=== PATIENT | female | born 1970 | race Caucasian/White ===

== ENCOUNTER 2017-07-01 11:37 | Emergency (ER) | payer BC ==
[2017-07-01] MEDS ORDERED: DOCUSATE 283 MG/5 ML ENEMA RECTAL STA (12:03)
[2017-07-01] MEDS ORDERED: MAGNESIUM CITRATE 296 ML BOTTLE PO ONE (12:03)
--- NOTE | 2017-07-01 12:06 | ED ---
Abdominal Pain HPI - General Chief Complaint: Abdominal Pain Stated Complaint: rectal bleed Time Seen by Provider: 07/01/17 11:49 Source: patient, RN notes reviewed, old records reviewed Mode of arrival: ambulatory Limitations: no limitations - History of Present Illness Initial Comments: 47-year-old female presents emergency Department chief complaint of one episode of bloody stool and constipation. Patient reports that yesterday she had a lot of cheese and thinks that that caused her to be constipated. She reports that she's never had bloody stools before. She reports that she was straining. She states it was a bright red blood. Patient denies any specific abdominal pain, denies any nausea or vomiting. Patient reports that she feels like she has to have a bowel movement but is unable to. Patient states she is not taking any stool softeners or any other medicine prior to coming in she was not sure if it was safe. Patient denies any recent fever, chills, shortness of breath, chest pain, back pain, abdominal pain, nausea vomiting, numbness or tingling, dysuria or hematuria, constipation or diarrhea, headaches or visual changes, or any other current symptoms - Related Data Previous Rx's Medication Instructions Recorded Bisacodyl [Dulcolax] 10 mg PO ONCE #10 tablet. 07/01/17 Allergies Allergy/AdvReac Type Severity Reaction Status Date / Time prochlorperazine Allergy Dyspnea Verified 07/01/17 11:44 [From Compazine] Review of Systems ROS Statement: Those systems with pertinent positive or pertinent negative responses have been documented in the HPI. ROS Other: All systems not noted in ROS Statement are negative. Past Medical History Past Medical History: No Reported History History of Any Multi-Drug Resistant Organisms: None Reported Past Surgical History: Adenoidectomy, Tonsillectomy, Tubal Ligation Past Psychological History: Anxiety, Depression Smoking Status: Never smoker Past Alcohol Use History: Occasional Past Drug Use History: None Reported General Exam - General Exam Comments Initial Comments: 47-year-old female. No acute distress. Limitations: no limitations General appearance: alert, in no apparent distress Head exam: Present: atraumatic, normocephalic, normal inspection Eye exam: Present: normal appearance, PERRL, EOMI. Absent: scleral icterus, conjunctival injection, periorbital swelling ENT exam: Present: normal exam, mucous membranes moist Neck exam: Present: normal inspection. Absent: tenderness, meningismus, lymphadenopathy Respiratory exam: Present: normal lung sounds bilaterally. Absent: respiratory distress, wheezes, rales, rhonchi, stridor Cardiovascular Exam: Present: regular rate, normal rhythm, normal heart sounds. Absent: systolic murmur, diastolic murmur, rubs, gallop, clicks GI/Abdominal exam: Present: soft, normal bowel sounds. Absent: distended, tenderness, guarding, rebound, rigid Rectal exam: Present: normal rectal tone, hemorrhoids (small external hemorrhoid ). Absent: normal inspection Extremities exam: Present: normal inspection, full ROM, normal capillary refill. Absent: tenderness, pedal edema, joint swelling, calf tenderness Back exam: Present: normal inspection Neurological exam: Present: alert, oriented X3, CN II-XII intact Psychiatric exam: Present: normal affect, normal mood Skin exam: Present: warm, dry, intact, normal color. Absent: rash Course Vital Signs 07/01/17 11:42 Temperature 97.9 F Pulse Rate 80 Respiratory 20 Rate Blood Pressure 136/80 O2 Sat by Pulse 99 Oximetry Medical Decision Making - Medical Decision Making 47-year-old female presents emergency Department chief complaint of one episode of bloody stool and constipation. Patient reports that yesterday she had a lot of cheese and thinks that that caused her to be constipated. She reports that she's never had bloody stools before. She reports that she was straining. She states it was a bright red blood. Patient denies any specific abdominal pain, denies any nausea or vomiting. Patient reports that she feels like she has to have a bowel movement but is unable to. Patient states she is not taking any stool softeners or any other medicine prior to coming in she was not sure if it was safe. He shouldn't does have what appears to be an external hemorrhoid and possible internal hemorrhoid. No pain noted on rectal exam. Patient did have a positive occult stool. Patient KUB was reviewed and negative for any acute process. She does a significant amount of stool burden. Patient was given Therevac enema, and will be discharged with magnesium citrate. Discussed that she needs to use stool softeners regularly if this continues to be an issue. Discussed for hemorrhoid it will stop bleeding with stool softeners. Recommended follow-up with primary care provider. Discussed that the severed painful to have a bowel movement she should return. Patient agrees to treatment plan will comply. Return parameters were discussed. - Lab Data Lab Results 07/01/17 Range/Units 12:20 Stool Occult Blood Positive H (Negative) - Radiology Data Interpreted by me: KUB shows no acute intracranial normality. Disposition Clinical Impression: Hemorrhoids, Constipation Disposition: HOME SELF-CARE Condition: Good Instructions: Constipation (ED), Hemorrhoids (ED) Additional Instructions: Patient advised to increase the fiber in her diet. Increase fluid intake. Patient should use stool softeners as well. Follow-up with her primary care provider. Return to emergency department if any alarming signs or symptoms occur. Prescriptions: Bisacodyl [Dulcolax] 10 mg PO ONCE #10 tablet.dr Referrals: Dennis Rocha MD [Primary Care Provider] - 1-2 days Time of Disposition: 12:45
--- NOTE | 2017-07-01 12:25 | XR ---
EXAMINATION TYPE: XR KUB , 2 VIEWS DATE OF EXAM ORDERED: 07/01/2017 HISTORY: Rectal bleeding. COMPARISON: Previous study dated 01/15/2013. FINDINGS: The abdominal gas pattern is normal. There is no evidence of obstruction or free air. No u nusual calcifications are seen. The lung bases are clear. IMPRESSION: NO ACUTE INTRA-ABDOMINAL ABDOMINAL ABNORMALITY.
[2017-07-01 12:59] VITALS: BP 128/64; PULSE 125; RESP 16; TEMP 97.6
== END 2017-07-01 12:59 | disposition home or self-care (01) ==
LOC: EC 11:37
DX: K64.4 Residual hemorrhoidal skin tags (principal); K59.00 Constipation, unspecified; Z98.51 Tubal ligation status; Z88.8 Allergy status to other drugs, medicaments and biological substances
CPT/HCPCS: 36415; 74000; 82272; 99284

== ENCOUNTER 2017-12-09 09:58 | Emergency (ER) | payer BC ==
[2017-12-09] MEDS ORDERED: KETOROLAC 30 MG/ML 1 ML VIAL IVP STA (10:43)
--- NOTE | 2017-12-09 10:48 | ED ---
URI HPI - General Chief Complaint: Upper Respiratory Infection Stated Complaint: CHEST MUSCLE PULL Time Seen by Provider: 12/09/17 10:21 Source: patient, RN notes reviewed Mode of arrival: ambulatory Limitations: no limitations - History of Present Illness Initial Comments: This is a 47-year-old female history of anxiety reflux a family history of heart disease and lung cancer she has 2 older sisters or smokers and have lung cancer in older brother was a smoker had heart disease. She presents today because she states she was awoken at night about 3:57 AM with upper midsternal achy chest pain that got worse with movements and deep breathing was 4-5/10 severity at its maximum and S1 is right now. She does states usually stretches a lot at night and believes this may have precipitated this also she was doing a lot of cleaning and moving items in her house yesterday which also may have exacerbated. Patient no known history personally of heart disease or lung disease she is not a smoker she also states she's has had some right upper quadrant discomfort she believes her gallbladder is acting up if she has nausea after eating. She denies any fevers chills sweats no overt rhinorrhea or sore throat she does have a cough no overt phlegm production no dysuria hematuria or other symptoms. Patient states she also has been using some heartburn but this is been going on for a long time and believes is related to her gallbladder. MD Complaint: cough, other - Related Data Home Medications Medication Instructions Recorded Confirmed ALPRAZolam [Xanax] 0.25 mg PO Q8HR PRN 12/09/17 12/09/17 Sertraline [Zoloft] 25 mg PO DAILY 12/09/17 12/09/17 Sertraline [Zoloft] 50 mg PO DAILY 12/09/17 12/09/17 Previous Rx's Medication Instructions Recorded Cyclobenzaprine [Flexeril] 10 mg PO TID #14 tab 12/09/17 Ibuprofen 800 mg PO Q6HR PRN #20 tablet 12/09/17 Allergies Allergy/AdvReac Type Severity Reaction Status Date / Time prochlorperazine Allergy Dyspnea Verified 12/09/17 12:21 [From Compazine] Review of Systems ROS Statement: Those systems with pertinent positive or pertinent negative responses have been documented in the HPI. ROS Other: All systems not noted in ROS Statement are negative. Past Medical History Past Medical History: No Reported History History of Any Multi-Drug Resistant Organisms: None Reported Past Surgical History: Adenoidectomy, Tonsillectomy, Tubal Ligation Past Psychological History: Anxiety, Depression Smoking Status: Never smoker Past Alcohol Use History: Occasional Past Drug Use History: None Reported General Exam - General Exam Comments Initial Comments: This is a well-developed well-nourished awake alert oriented 3 female Limitations: no limitations General appearance: alert, in no apparent distress Head exam: Present: atraumatic, normocephalic, normal inspection Eye exam: Present: normal appearance, PERRL, EOMI. Absent: scleral icterus, conjunctival injection, periorbital swelling ENT exam: Present: normal exam, mucous membranes moist Neck exam: Present: normal inspection. Absent: tenderness, meningismus, lymphadenopathy Respiratory exam: Present: normal lung sounds bilaterally, chest wall tenderness (Reproducible tenderness palpation of the costochondral and costosternal margin especially proximal aspect. This does reproduce the pain the patient complains of.). Absent: respiratory distress, wheezes, rales, rhonchi, stridor Cardiovascular Exam: Present: regular rate, normal rhythm, normal heart sounds, other (Pulses were equal bilaterally 2/2 with respect to the radial and posterior tibial). Absent: systolic murmur, diastolic murmur, rubs, gallop, clicks GI/Abdominal exam: Present: soft, tenderness (Mild right upper quadrant tenderness palpation no guarding no rebound), normal bowel sounds. Absent: distended, guarding, rebound, rigid Rectal exam: Present: deferred Extremities exam: Present: normal inspection, full ROM, normal capillary refill. Absent: tenderness, pedal edema, joint swelling, calf tenderness Back exam: Present: normal inspection, full ROM. Absent: tenderness, CVA tenderness (R), CVA tenderness (L), muscle spasm, paraspinal tenderness, vertebral tenderness Neurological exam: Present: alert, oriented X3, CN II-XII intact Psychiatric exam: Present: normal affect, normal mood Skin exam: Present: warm, dry, intact, normal color. Absent: rash Course Vital Signs 12/09/17 12/09/17 12/09/17 10:14 12:20 14:13 Temperature 97.2 F L Pulse Rate 76 62 Respiratory 17 18 18 Rate Blood Pressure 153/72 118/59 125/78 O2 Sat by Pulse 99 99 99 Oximetry - Reevaluation(s) Reevaluation #1: 12/09/17 12:56 Patient is feeling somewhat improved she states she has been having some chest pain recently though the Toradol did help the pain she never had a history of blood clots over d-dimer is elevated the chest has been ordered Medical Decision Making - Medical Decision Making I did discuss the findings with the patient. She'll be discharged with appropriate medication the presentation is consistent with chest wall pain. CT is negative for PE no other pathology noted. We did discuss the possibility of gallbladder disease needing a HIDA scan which she couldn have this discussed with her doctor - Lab Data Result diagrams: 12/09/17 11:20 12/09/17 11:20 Lab Results 12/09/17 12/09/17 12/09/17 Range/Units 11:20 11:20 11:20 WBC 4.3 (3.8-10.6) k/uL RBC 4.29 (3.80-5.40) m/uL Hgb 12.5 (11.4-16.0) gm/dL Hct 38.0 (34.0-46.0) % MCV 88.4 (80.0-100.0) fL MCH 29.0 (25.0-35.0) pg MCHC 32.8 (31.0-37.0) g/dL RDW 14.2 (11.5-15.5) % Plt Count 187 (150-450) k/uL Neutrophils % 67 % Lymphocytes % 23 % Monocytes % 6 % Eosinophils % 1 % Basophils % 1 % Neutrophils # 2.9 (1.3-7.7) k/uL Lymphocytes # 1.0 (1.0-4.8) k/uL Monocytes # 0.3 (0-1.0) k/uL Eosinophils # 0.1 (0-0.7) k/uL Basophils # 0.0 (0-0.2) k/uL PT (9.0-12.0) sec INR (<1.2) APTT (22.0-30.0) sec D-Dimer (<0.60) mg/L FEU Sodium 138 (137-145) mmol/L Potassium 3.7 (3.5-5.1) mmol/L Chloride 105 (98-107) mmol/L Carbon Dioxide 26 (22-30) mmol/L Anion Gap 7 mmol/L BUN 12 (7-17) mg/dL Creatinine 0.52 (0.52-1.04) mg/dL Est GFR (CKD-EPI)AfAm >90 (>60 ml/min/1.73 sqM) Est GFR (CKD-EPI)NonAf >90 (>60 ml/min/1.73 sqM) Glucose 98 (74-99) mg/dL Calcium 9.2 (8.4-10.2) mg/dL Magnesium 1.7 (1.6-2.3) mg/dL Total Bilirubin 0.2 (0.2-1.3) mg/dL AST 25 (14-36) U/L ALT 31 (9-52) U/L Alkaline Phosphatase 83 (38-126) U/L Total Creatine Kinase 31 (30-135) U/L CK-MB (CK-2) <0.2 (0.0-2.4) ng/mL CK-MB (CK-2) Rel Index Troponin I <0.012 (0.000-0.034) ng/mL Total Protein 6.1 L (6.3-8.2) g/dL Albumin 3.8 (3.5-5.0) g/dL Amylase 39 (30-110) U/L Lipase 43 (23-300) U/L //18 Range/Units 11:20 WBC (3.8-10.6) k/uL RBC (3.80-5.40) m/uL Hgb (11.4-16.0) gm/dL Hct (34.0-46.0) % MCV (80.0-100.0) fL MCH (25.0-35.0) pg MCHC (31.0-37.0) g/dL RDW (11.5-15.5) % Plt Count (150-450) k/uL Neutrophils % % Lymphocytes % % Monocytes % % Eosinophils % % Basophils % % Neutrophils # (1.3-7.7) k/uL Lymphocytes # (1.0-4.8) k/uL Monocytes # (0-1.0) k/uL Eosinophils # (0-0.7) k/uL Basophils # (0-0.2) k/uL PT 10.4 (9.0-12.0) sec INR 1.1 (<1.2) APTT 22.9 (22.0-30.0) sec D-Dimer 0.61 H (<0.60) mg/L FEU Sodium (137-145) mmol/L Potassium (3.5-5.1) mmol/L Chloride (98-107) mmol/L Carbon Dioxide (22-30) mmol/L Anion Gap mmol/L BUN (7-17) mg/dL Creatinine (0.52-1.04) mg/dL Est GFR (CKD-EPI)AfAm (>60 ml/min/1.73 sqM) Est GFR (CKD-EPI)NonAf (>60 ml/min/1.73 sqM) Glucose (74-99) mg/dL Calcium (8.4-10.2) mg/dL Magnesium (1.6-2.3) mg/dL Total Bilirubin (0.2-1.3) mg/dL AST (14-36) U/L ALT (9-52) U/L Alkaline Phosphatase (38-126) U/L Total Creatine Kinase (30-135) U/L CK-MB (CK-2) (0.0-2.4) ng/mL CK-MB (CK-2) Rel Index Troponin I (0.000-0.034) ng/mL Total Protein (6.3-8.2) g/dL Albumin (3.5-5.0) g/dL Amylase (30-110) U/L Lipase (23-300) U/L - EKG Data -: EKG Interpreted by Me EKG shows normal: sinus rhythm (Sinus rhythm rate is 77 appear interval 188 QRS duration 88 QT since QTC of 36/436 occasional PACs no acute ST-T wave changes.) - Radiology Data Radiology results: report reviewed (I did review the imaging and reports no acute findings.), image reviewed Disposition Clinical Impression: Costochondritis, acute, Chest wall pain Disposition: HOME SELF-CARE Condition: Good Instructions: Costochondritis (ED), Chest Wall Pain (ED) Prescriptions: Cyclobenzaprine [Flexeril] 10 mg PO TID #14 tab Ibuprofen 800 mg PO Q6HR PRN #20 tablet PRN Reason: Pain Referrals: Dennis Rocha MD [Primary Care Provider] - 1-2 days
[2017-12-09 11:31] LABS: Basophils % (A) 1 %; Eosinophils # (A) 0.1 k/uL (0-0.7); Eosinophils % (A) 1 %; HGB 12.5 gm/dL (11.4-16.0); Lymphocytes % (A) 23 %; MCHC 32.8 g/dL (31.0-37.0); MCV 88.4 fL (80.0-100.0); Mean Platelet Volume 7.7; Monocytes # (A) 0.3 k/uL (0-1.0); Monocytes % (A) 6 %; Neutrophils # (A) 2.9 k/uL (1.3-7.7); Neutrophils % (A) 67 %; Platelet Count 187 k/uL (150-450); RBC 4.29 m/uL (3.80-5.40); RDW 14.2 % (11.5-15.5); WBC 4.3 k/uL (3.8-10.6)
[2017-12-09 11:44] LABS: ALT 31 U/L (9-52); AST 25 U/L (14-36); Albumin 3.8 g/dL (3.5-5.0); Alkaline Phosphatase 83 U/L (38-126); Amylase 39 U/L (30-110); Anion Gap 7 mmol/L; Blood Urea Nitrogen 12 mg/dL (7-17); Calcium 9.2 mg/dL (8.4-10.2); Carbon Dioxide 26 mmol/L (22-30); Chloride 105 mmol/L (98-107); Glucose 98 mg/dL (74-99); Lipase 43 U/L (23-300); Magnesium 1.7 mg/dL (1.6-2.3); Potassium 3.7 mmol/L (3.5-5.1); Sodium 138 mmol/L (137-145); Total Bilirubin 0.2 mg/dL (0.2-1.3); Total Protein 6.1 g/dL (6.3-8.2)
[2017-12-09 11:50] LABS: INR 1.1 (<1.2)
[2017-12-09 11:51] LABS: Partial Thromboplastin Time 22.9 sec (22.0-30.0); Prothrombin Time 10.4 sec (9.0-12.0)
[2017-12-09 11:55] LABS: D-Dimer 0.61 mg/L FEU (<0.60)
[2017-12-09 12:03] LABS: Creatine Kinase 31 U/L (30-135)
--- NOTE | 2017-12-09 12:04 | XR ---
EXAMINATION TYPE: XR chest 2V DATE OF EXAM: 12/09/2017 HISTORY: Chest Pain. REFERENCE: Previous study dated 10/01/2010. FINDINGS: The lungs are clear pleural space are clear. The heart is not enlarged. IMPRESSION: I DO NOT SEE AN ACUTE INTRATHORACIC ABNORMALITY.
[2017-12-09 12:16] LABS: Creatine Kinase MB <0.2 ng/mL (0.0-2.4); Troponin I <0.012 ng/mL (0.000-0.034)
[2017-12-09 12:21] VITALS: RESP 18
[2017-12-09] MEDS ORDERED: RX INFO: IV CONTRAST WAS GIVEN 1 EACH MISC MISCELLANE PRN (12:54)
--- NOTE | 2017-12-09 13:43 | US ---
EXAMINATION TYPE: US gallbladder DATE OF EXAM: 12/09/2017 COMPARISON: US 06/19/2017 CLINICAL HISTORY: Chest Pain. EXAM MEASUREMENTS: Liver Length: 17.3 cm Gallbladder Wall: 0.1 cm CBD: 0.4 cm Right Kidney: 10.7 x 4.2 x 4.2 cm Pancreas: Tail obscured by overlying bowel gas, visualized portions wnl Liver: Measuring upper limits of normal Gallbladder: wnl Evidence for sonographic Burch's sign: No CBD: wnl Right Kidney: No hydronephrosis or masses seen Limited views of the pancreas are unremarkable. The liver is normal in size of the pituitary dilatation. The gallbladder is normal without evidence of cholelithiasis. The gallbladder wall measures 1 mm. The distal common hepatic duct measures 4 mm. Right kidney is unremarkable. IMPRESSION: NORMAL RIGHT UPPER QUADRANT ULTRASOUND.
--- NOTE | 2017-12-09 15:14 | CT ---
EXAMINATION TYPE: CT angio chest DATE OF EXAM: 12/09/2017 2:26 PM COMPARISON: NONE HISTORY: Chest muscle pull CT DLP: 239.60 mGycm Automated exposure control for dose reduction was used. CONTRAST: CTA scan of the thorax is performed with IV Contrast, patient injected with 100 ml mL of Omnipaque 30 0, pulmonary embolism protocol. . FINDINGS: LUNGS: The lungs are grossly clear, there is no concerning parenchymal mass or nodule identified. T here is no pleural effusion or pneumothorax seen. The tracheobronchial tree is patent. MEDIASTINUM: There is satisfactory enhancement of the pulmonary artery and its branches, there is no CT evidence for pulmonary embolism. There are no greater than 1 cm hilar or mediastinal lymph nodes. No pericardial effusion is seen. OTHER: No additional significant abnormality is seen. IMPRESSION: NO FINDINGS TO SUGGEST PULMONARY EMBOLISM.
[2017-12-09 15:40] VITALS: BP 114/62; PULSE 76; TEMP 97.1
== END 2017-12-09 15:46 | disposition home or self-care (01) ==
LOC: EC 09:58
DX: M94.0 Chondrocostal junction syndrome [Tietze] (principal); R10.11 Right upper quadrant pain; R11.0 Nausea; F32.9 Major depressive disorder, single episode, unspecified; F41.9 Anxiety disorder, unspecified; Z80.1 Family history of malignant neoplasm of trachea, bronchus and lung; Z82.49 Family history of ischemic heart disease and other diseases of the circulatory system; Z79.899 Other long term (current) drug therapy; Z88.8 Allergy status to other drugs, medicaments and biological substances
CPT/HCPCS: 36415; 93005; 85379; 80053; 82150; 82550; 82553; 83690; 83735; 84484; 85025; 85610; 85730; 71046; 76705; 71275; 99284; 96374; Q9967; J1885

== ENCOUNTER → 2018-05-24 | Outpatient (CLI) | payer BC ==
--- NOTE | 2018-05-24 13:58 | MR ---
EXAMINATION TYPE: MR knee LT wo con DATE OF EXAM: 05/24/2018 COMPARISON: HISTORY: Left knee pain TECHNIQUE: Multiplanar, multisequence imaging of the knee is performed without IV contrast. FINDINGS: MEDIAL MENISCUS: Posterior horn of the medial meniscus has increased internal signal compatible type I internal derangement. No communication with an articular surface is evident. Anterior horn of the m edial meniscus is normal. LATERAL MENISCUS: Anterior and posterior horns are intact without tear. CRUCIATE LIGAMENTS: The anterior and posterior cruciate ligaments are intact and unremarkable. COLLATERAL LIGAMENTS: The medial collateral ligament and lateral collateral ligament complex are inta ct and unremarkable. EXTENSOR MECHANISM: Visualized quadriceps and patellar tendons are intact. EFFUSION: No significant suprapatellar joint effusion. POPLITEAL CYST: No popliteal/sommer cyst. TRICOMPARTMENT SPACES: Joint spaces appear preserved. CARTILAGE: Mild thinning of the medial and lateral compartment articular cartilage may be present. BONE MARROW SIGNAL: No focal abnormal marrow signal is appreciated. OTHER: No additional significant abnormality is appreciated. IMPRESSION: 1. Internal derangement of the posterior horn medial meniscus. 2. There may be some mild osteoarthritic degenerative change medial lateral compartment joint spaces.
== END | disposition home or self-care (01) ==
LOC: RADMRIMAIN 06:49
PROVIDERS: ATTEND Orthopaedic Surgery
DX: M23.322 Other meniscus derangements, posterior horn of medial meniscus, left knee (principal)

== ENCOUNTER → 2018-08-17 | Outpatient (CLI) | payer BC ==
--- NOTE | 2018-08-21 11:26 | MM ---
Reason for exam: screening (asymptomatic). Last mammogram was performed 5 years and 1 month ago. History: Benign excisional biopsy of the right breast, 2010. Benign cyst aspiration of the right breast, 2007. Took hormonal contraceptives for 1 year. Physical Findings: A clinical breast exam by your physician is recommended on an annual basis and results should be correlated with mammographic findings. MG 3D Screening Mammo W/Cad Bilateral CC and MLO view(s) were taken. Prior study comparison: July 26, 2013, [facility] DIGITAL RIGHT MAMMOGRAM w/CAD. July 22, 2013, bilateral digital screening mammo w/CAD. The breast tissue is heterogeneously dense. This may lower the sensitivity of mammography. Right upper outer quadrant architectural distortion. There was an overlying scar marker in 2013. The distortion is more defined that may be post surgical. ASSESSMENT: Incomplete: need additional imaging evaluation, BI-RAD 0 RECOMMENDATION: Special view mammogram of the right breast. If lesion persists on supplemental views, image directed ultrasound is recommended. [facility] will attempt to contact patient to return for supplemental views and ultrasound if indicated.
== END | disposition home or self-care (01) ==
LOC: RADMAMWWP 09:41
PROVIDERS: ATTEND Family Medicine
DX: Z12.31 Encounter for screening mammogram for malignant neoplasm of breast (principal); R92.8 Other abnormal and inconclusive findings on diagnostic imaging of breast
CPT/HCPCS: 77063; 77067

== ENCOUNTER → 2018-08-27 | Outpatient (CLI) | payer BC ==
--- NOTE | 2018-08-27 10:20 | MM ---
Reason for exam: additional evaluation requested from abnormal screening. Last mammogram was performed less than 1 month ago. History: Benign excisional biopsy of the right breast, 2009. Benign cyst aspiration of the right breast, 2007. Took hormonal contraceptives for 1 year. Physical Findings: Nurse did not find any significant physical abnormalities on exam. MG 3D Work Up W/Cad RT Spot compression CC, spot compression MLO, and LM view(s) were taken of the right breast. Prior study comparison: August 17, 2018, bilateral MG 3d screening mammo w/cad. July 26, 2013, [facility] DIGITAL RIGHT MAMMOGRAM w/CAD. The breast tissue is heterogeneously dense. This may lower the sensitivity of mammography. Right upper outer quadrant distortion is similar to 2013 at the site of prior surgical excision. These results were verbally communicated with the patient and result sheet given to the patient on 08/27/18. ASSESSMENT: Benign, BI-RAD 2 RECOMMENDATION: Return to routine screening mammogram schedule for both breasts.
== END ==
LOC: RADMAMWWP 06:54
PROVIDERS: ATTEND Family Medicine
DX: R92.8 Other abnormal and inconclusive findings on diagnostic imaging of breast (principal)
CPT/HCPCS: 77061; 77065

== ENCOUNTER → 2018-10-04 | Outpatient (CLI) | payer BC ==
--- NOTE | 2018-10-04 12:12 | CT ---
EXAMINATION TYPE: CT brain wo con DATE OF EXAM: 10/04/2018 COMPARISON: None HISTORY: 48-year-old female with headache TECHNIQUE: Examination was done in axial plane without intravenous contrast. Coronal and sagittal r econstructions performed. CT DLP: 1180 mGycm Automated exposure control for dose reduction was used. FINDINGS: There is no evidence of acute intracranial hemorrhage, acute ischemic changes, mass, mass-effect, or extra-axial fluid collection. There is no effacement of cerebral sulci or basal subarachnoid cister ns. There is no hydrocephalus. There is no midline shift. Gardiner-white matter distinction is preserv ed. Paranasal sinuses and mastoid air cells are pneumatized. Orbits and globes are intact. IMPRESSION: No acute intracranial abnormality seen.
== END ==
LOC: RADCTMAIN 11:42
PROVIDERS: ATTEND Physician Assistant
DX: R51 Headache (principal)
CPT/HCPCS: 70450

== ENCOUNTER 2019-01-12 10:38 | Emergency (ER) | payer BC ==
[2019-01-12 10:42] VITALS: BP 146/86; PULSE 72; RESP 18; TEMP 98.2
--- NOTE | 2019-01-12 11:03 | ED ---
General Adult HPI - General Chief complaint: Head Injury Stated complaint: headaches/hit head Time Seen by Provider: 01/12/19 10:46 Source: patient, RN notes reviewed, old records reviewed Mode of arrival: ambulatory Limitations: no limitations - History of Present Illness Initial comments: 49-year-old female presenting status post head injury with complaint of headache. Patient fell 4 days prior, fell off of a stepstool landing onto the back of her head. No loss consciousness. She said no associated photophobia, no nausea or vomiting. She does have chronic daily headache although she states that headache over the past 4 days is somewhat different than baseline. She reports chronic sinus headache as well as migraine type headache. She has had this for many years. Headache today is bifrontal and right occipital. Headache. Began after the fall. She's had no focal numbness or weakness. No blood thinners. - Related Data Home Medications Medication Instructions Recorded Confirmed ALPRAZolam [Xanax] 0.25 mg PO Q8HR PRN 12/09/17 01/12/19 Sertraline [Zoloft] 50 mg PO DAILY 12/09/17 01/12/19 Allergies Allergy/AdvReac Type Severity Reaction Status Date / Time prochlorperazine Allergy Dyspnea Verified 01/12/19 11:23 [From Compazine] Review of Systems ROS Statement: Those systems with pertinent positive or pertinent negative responses have been documented in the HPI. ROS Other: All systems not noted in ROS Statement are negative. Past Medical History Past Medical History: No Reported History History of Any Multi-Drug Resistant Organisms: None Reported Past Surgical History: Adenoidectomy, Tonsillectomy, Tubal Ligation Past Psychological History: Anxiety, Depression Smoking Status: Never smoker Past Alcohol Use History: Occasional Past Drug Use History: None Reported General Exam Limitations: no limitations General appearance: alert, in no apparent distress Head exam: Present: atraumatic, normocephalic Eye exam: Present: normal appearance, PERRL ENT exam: Present: normal exam Neck exam: Present: normal inspection. Absent: tenderness, meningismus Respiratory exam: Present: normal lung sounds bilaterally. Absent: respiratory distress, wheezes Cardiovascular Exam: Present: regular rate, normal rhythm GI/Abdominal exam: Present: soft. Absent: distended, tenderness, guarding Extremities exam: Present: normal inspection, normal capillary refill. Absent: pedal edema Neurological exam: Present: alert, oriented X3, CN II-XII intact. Absent: motor sensory deficit Psychiatric exam: Present: normal affect, normal mood Skin exam: Present: warm, dry, intact. Absent: cyanosis, diaphoretic Course Vital Signs 01/12/19 10:40 Temperature 98.2 F Pulse Rate 72 Respiratory 18 Rate Blood Pressure 146/86 O2 Sat by Pulse 98 Oximetry Medical Decision Making - Medical Decision Making 49-year-old female presenting with headache status post fall with head injury. Patient is well-appearing with stable vitals, nonfocal exam. Head CT obtained, negative for intracranial hemorrhage or mass effect. Patient will be discharged with concussion instructions. Follow up with primary care physician. Disposition Clinical Impression: Concussion without loss of consciousness Disposition: HOME SELF-CARE Condition: Good Instructions (If sedation given, give patient instructions): Concussion (ED) Is patient prescribed a controlled substance at d/c from ED?: No Referrals: Dennis Rocha MD [Primary Care Provider] - 1-2 days Time of Disposition: 11:34
--- NOTE | 2019-01-12 11:16 | CT ---
EXAMINATION TYPE: CT brain wo con DATE OF EXAM: 01/12/2019 COMPARISON: 10/04/2018 HISTORY: Headache, hit head CT DLP: [address] of the brain was performed. The ventricles, basal cisterns and sulci overlying the cerebral convexities demonstrate a normal appe arance. There is no evidence for intracranial hemorrhage or sulcal effacement. No mass effects are seen. Osseous calvarium is intact. If symptoms persist consider MRI as clinically warranted. IMPRESSION: 1. No acute intracranial process is seen at this time.
--- NOTE | 2019-01-12 11:17 | CT ---
EXAMINATION TYPE: CT sinus wo con DATE OF EXAM: 01/12/2019 COMPARISON: None HISTORY: Headache, hit head CT DLP: included in brain mGycm Unenhanced CT of the paranasal sinuses was performed in the axial and coronal planes. Bone and soft tissue settings are submitted. The paranasal sinuses demonstrate normal aeration and development. Mild mucoperiosteal thickening of the ethmoid air cells and maxillary sinuses. No air-fluid level see n. The osteal meatal units are patent bilaterally. The nasal septum is midline. No bony destructive changes are seen within the field of view. IMPRESSION: Mild mucoperiosteal thickening of the ethmoid air cells and maxillary sinuses.
== END 2019-01-12 11:39 | disposition home or self-care (01) ==
LOC: EC 10:38
DX: S06.0X0A Concussion without loss of consciousness, initial encounter (principal); F32.9 Major depressive disorder, single episode, unspecified; F41.9 Anxiety disorder, unspecified; Z88.8 Allergy status to other drugs, medicaments and biological substances; Z79.899 Other long term (current) drug therapy; W08.XXXA Fall from other furniture, initial encounter; Y93.89 Activity, other specified
CPT/HCPCS: 70450; 70486; 99284

== ENCOUNTER → 2019-09-24 | Outpatient (CLI) | payer BC ==
--- NOTE | 2019-09-26 13:20 | MM ---
Reason for exam: screening (asymptomatic). Last mammogram was performed 1 year and 1 month ago. History: Benign excisional biopsy of the right breast, 2009. Benign cyst aspiration of the right breast, 2007. Took hormonal contraceptives for 1 year. Physical Findings: A clinical breast exam by your physician is recommended on an annual basis and results should be correlated with mammographic findings. MG 3D Screening Mammo W/Cad Bilateral CC and MLO view(s) were taken. Prior study comparison: August 27, 2018, right breast MG 3d work up w/cad RT. August 17, 2018, bilateral MG 3d screening mammo w/cad. The breast tissue is heterogeneously dense. This may lower the sensitivity of mammography. No suspicious abnormality on the left breast. There appear to be two areas of architectural distortion on 3D CC image 25/90 at posterior depth 10-11cm from nipple and on 3D CC 45/90 at middle depth 7cm from nipple. These appear superior on MLO. Excisional scar back to 2012. Given two areas of distortion ultrasound will be done. ASSESSMENT: Incomplete: need additional imaging evaluation, BI-RAD 0 RECOMMENDATION: Ultrasound of the right breast. [facility] will attempt to contact patient to return for ultrasound.
== END | disposition home or self-care (01) ==
LOC: RADMAMWWP 07:41
PROVIDERS: ATTEND Family Medicine
DX: Z12.31 Encounter for screening mammogram for malignant neoplasm of breast (principal)
CPT/HCPCS: 77063; 77067

== ENCOUNTER → 2019-10-09 | Outpatient (CLI) | payer BC ==
--- NOTE | 2019-10-09 10:14 | USB ---
Reason for exam: additional evaluation requested from abnormal screening. History: Benign excisional biopsy of the right breast, 2010. Benign cyst aspiration of the right breast, 2007. Took hormonal contraceptives for 1 year. Physical Findings: Nurse Summary: Patient complains of pain lateral right breast for months, intermittent (nurse TM). US Breast Workup RT Right complete breast ultrasound includes all four quadrants, the retroareolar region and axilla. Finding demonstrates a 0.6 x 0.4 x 0.6cm cystic lesion at 12 o'clock and 10 o'clock distortion correlates with prior biopsy site. No ultrasound abnormality at second more posterior distortion by mammogram. These results were verbally communicated with the patient and result sheet given to the patient on 10/09/19. ASSESSMENT: Benign, BI-RAD 2 RECOMMENDATION: Special view mammogram of the right breast. (3D compression)
--- NOTE | 2019-10-09 10:15 | MM ---
Reason for exam: additional evaluation requested from abnormal screening. Last mammogram was performed less than 1 month ago. History: Benign excisional biopsy of the right breast, 2009. Benign cyst aspiration of the right breast, 2007. Took hormonal contraceptives for 1 year. MG 3D Work Up W/Cad RT Spot compression CC and LM view(s) were taken of the right breast. Prior study comparison: September 24, 2019, bilateral MG 3d screening mammo w/cad. August 27, 2018, right breast MG 3d work up w/cad RT. The breast tissue is heterogeneously dense. This may lower the sensitivity of mammography. There is no discrete abnormality at posterior distortion on compression. These results were verbally communicated with the patient and result sheet given to the patient on 10/09/19. ASSESSMENT: Probably benign, BI-RAD 3 RECOMMENDATION: Follow-up diagnostic mammogram of the right breast in 6 months.
== END | disposition home or self-care (01) ==
LOC: RADMAMWWP 08:38
PROVIDERS: ATTEND Family Medicine
DX: R92.8 Other abnormal and inconclusive findings on diagnostic imaging of breast (principal)
CPT/HCPCS: 77061; 77065

== ENCOUNTER 2019-10-19 12:16 | Emergency (ER) | payer BC ==
[2019-10-19 12:20] VITALS: RESP 18; TEMP 100
[2019-10-19] MEDS ORDERED: SODIUM CHLORIDE 0.9% 500 ML 500 ML IV STA (12:46)
--- NOTE | 2019-10-19 12:53 | ED ---
General Adult HPI - General Chief complaint: Chest Pain Stated complaint: Numbness in hands, chest pain Time Seen by Provider: 10/19/19 12:28 Source: patient Mode of arrival: ambulatory Limitations: no limitations - History of Present Illness Initial comments: Dictation was produced using [employer] dictation software. please excuse any grammatical, word or spelling errors. Chief Complaint: 49-year-old female past medical history of anxiety presents with chest pain and paresthesias to bilateral hands. History of Present Illness: Patient is a 49-year-old female past medical history of anxiety. She presents today with chief complaint of chest pain and paresthesias to the hands. Patient states that today she's been having some chest pain. She describes it as sharp located to the left anterior chest just anterior to the left anterior axillary line. She describes pain as sharp worse with palpation and movement. Patient does not have any history of coronary artery disease. Family history of cardiac disease. Patient states her had flulike symptoms recently however he recovered. The ROS documented in this emergency department record has been reviewed and confirmed by me. Those systems with pertinent positive or negative responses have been documented in the HPI. All other systems are other negative and/or noncontributory. PHYSICAL EXAM: General Impression: Alert and oriented x3, not in acute distress HEENT: Normocephalic atraumatic, extra-ocular movements intact, pupils equal and reactive to light bilaterally, mucous membranes moist. Cardiovascular: Heart regular rate and rhythm, S1&S2 audible, no murmurs, rubs or gallops Chest: Lungs clear to auscultation bilaterally, no rhonchi, no wheeze, no rales, tenderness to palpation of the left anterior chest reproducible with left upper extremity movement as well Abdomen: Bowel sounds present, abdomen soft, non-tender, non-distended, no organomegaly Musculoskeletal: Pulses present and equal in all extremities, no peripheral edema Motor: no focal deficits noted Neurological: CN II-XII grossly intact, no focal motor or sensory deficits noted Skin: Intact with no visualized rashes Psych: Normal affect and mood ED course: 49-year-old female presents with atypical chest pain. Patient also had flulike symptoms. She did take some Mucinex just before coming to the emergency department. On arrival shows 100. Temperature oral, heart rate of 105, rest of vital signs within acceptable limits. Patient is well-appearing at bedside. She is no risk factors for coronary artery disease, no significant family history. Furthermore, patient's pain is atypical. EKGs benign. Laboratory evaluation obtained. CBC, metabolic panel, influenza test negative. Patient does have some mild acidosis. She admitted to me that she just started ketogenic diet. Patient's labs suggested also some mild dehydration. Patient told that if she is on is that she should increase her hydration status. Patient told to avoid Sudafed containing cold medications. Patient agreeable for discharge. She is told of metabolic acidosis but THE primary care physician. EKG interpretation: Ventricular rate 98, normal sinus rhythm, CT interval 182, QRS 88, QTc 464. No CT prolongation, no QTC prolongation, no ST or T-wave changes noted. Overall, this EKG is unremarkable - Related Data Home Medications Medication Instructions Recorded Confirmed ALPRAZolam [Xanax] 0.25 mg PO Q8HR PRN 12/09/17 01/12/19 Sertraline [Zoloft] 50 mg PO DAILY 12/09/17 01/12/19 Allergies Allergy/AdvReac Type Severity Reaction Status Date / Time prochlorperazine Allergy Dyspnea Verified 01/12/19 11:23 [From Compazine] Review of Systems ROS Statement: Those systems with pertinent positive or pertinent negative responses have been documented in the HPI. ROS Other: All systems not noted in ROS Statement are negative. Past Medical History Past Medical History: No Reported History History of Any Multi-Drug Resistant Organisms: None Reported Past Surgical History: Adenoidectomy, Tonsillectomy, Tubal Ligation Additional Past Surgical History / Comment(s): tumor removed out of right breast. Past Psychological History: Anxiety, Depression Smoking Status: Never smoker Past Alcohol Use History: Occasional Past Drug Use History: None Reported General Exam Limitations: no limitations Course Vital Signs 10/19/19 12:18 Temperature 100 F H Pulse Rate 105 H Respiratory 18 Rate Blood Pressure 154/76 O2 Sat by Pulse 100 Oximetry Medical Decision Making - Lab Data Result diagrams: 10/19/19 12:37 10/19/19 12:37 Lab Results 10/19/19 10/19/19 10/19/19 Range/Units 12:37 12:37 12:44 WBC 5.7 (3.8-10.6) k/uL RBC 4.42 (3.80-5.40) m/uL Hgb 12.9 (11.4-16.0) gm/dL Hct 39.3 (34.0-46.0) % MCV 88.9 (80.0-100.0) fL MCH 29.2 (25.0-35.0) pg MCHC 32.8 (31.0-37.0) g/dL RDW 13.7 (11.5-15.5) % Plt Count 187 (150-450) k/uL Neutrophils % 87 % Lymphocytes % 5 % Monocytes % 6 % Eosinophils % 1 % Basophils % 1 % Neutrophils # 4.9 (1.3-7.7) k/uL Lymphocytes # 0.3 L (1.0-4.8) k/uL Monocytes # 0.3 (0-1.0) k/uL Eosinophils # 0.1 (0-0.7) k/uL Basophils # 0.0 (0-0.2) k/uL Sodium 136 L (137-145) mmol/L Potassium 3.7 (3.5-5.1) mmol/L Chloride 106 (98-107) mmol/L Carbon Dioxide 19 L (22-30) mmol/L Anion Gap 11 mmol/L BUN 16 (7-17) mg/dL Creatinine 0.63 (0.52-1.04) mg/dL Est GFR (CKD-EPI)AfAm >90 (>60 ml/min/1.73 sqM) Est GFR (CKD-EPI)NonAf >90 (>60 ml/min/1.73 sqM) Glucose 102 H (74-99) mg/dL Calcium 9.3 (8.4-10.2) mg/dL Influenza Type A RNA Not Detected (Not Detectd) Influenza Type B (PCR) Not Detected (Not Detectd) Disposition Clinical Impression: Strain of chest wall Disposition: HOME SELF-CARE Condition: Good Instructions (If sedation given, give patient instructions): Chest Pain (ED) Is patient prescribed a controlled substance at d/c from ED?: No Referrals: Dennis Rocha MD [Primary Care Provider] - 1-2 days Time of Disposition: 14:25
--- NOTE | 2019-10-19 13:22 | XR ---
EXAMINATION TYPE: XR chest 2V DATE OF EXAM: 10/19/2019 HISTORY: cough. REFERENCE: Previous study dated 12/09/2017. FINDINGS: The lungs are clear. Pleural space are clear. The heart is not enlarged. IMPRESSION: NORMAL CHEST.
[2019-10-19 13:39] LABS: Basophils % (A) 1 %; Eosinophils # (A) 0.1 k/uL (0-0.7); Eosinophils % (A) 1 %; HCT 39.3 % (34.0-46.0); HGB 12.9 gm/dL (11.4-16.0); Lymphocytes # (A) 0.3 k/uL (1.0-4.8); Lymphocytes % (A) 5 %; MCH 29.2 pg (25.0-35.0); MCHC 32.8 g/dL (31.0-37.0); MCV 88.9 fL (80.0-100.0); Mean Platelet Volume 8.6; Monocytes # (A) 0.3 k/uL (0-1.0); Monocytes % (A) 6 %; Neutrophils # (A) 4.9 k/uL (1.3-7.7); Neutrophils % (A) 87 %; Platelet Count 187 k/uL (150-450); RBC 4.42 m/uL (3.80-5.40); RDW 13.7 % (11.5-15.5); WBC 5.7 k/uL (3.8-10.6)
[2019-10-19 13:47] LABS: African American GFR (CKD) >90 (>60 ml/min/1.73 sqM); Anion Gap 11 mmol/L; Blood Urea Nitrogen 16 mg/dL (7-17); Calcium 9.3 mg/dL (8.4-10.2); Carbon Dioxide 19 mmol/L (22-30); Chloride 106 mmol/L (98-107); Glucose 102 mg/dL (74-99); Non-African American GFR(CKD) >90 (>60 ml/min/1.73 sqM); Potassium 3.7 mmol/L (3.5-5.1); Sodium 136 mmol/L (137-145)
[2019-10-19 14:32] VITALS: BP 134/76; PULSE 81
== END 2019-10-19 14:30 | disposition home or self-care (01) ==
LOC: EC 12:16
DX: S29.011A Strain of muscle and tendon of front wall of thorax, initial encounter (principal); E87.2 Acidosis; F41.9 Anxiety disorder, unspecified; F32.9 Major depressive disorder, single episode, unspecified; Z79.899 Other long term (current) drug therapy; Z88.8 Allergy status to other drugs, medicaments and biological substances; X58.XXXA Exposure to other specified factors, initial encounter
CPT/HCPCS: 36415; 71046; 80048; 85025; 87502; 93005; 99285

== ENCOUNTER → 2020-03-10 | Outpatient (CLI) | payer BC ==
--- NOTE | 2020-03-11 09:39 | XR ---
Cervical spine HISTORY: Posterior and anterior neck pain 5 views of the cervical spine Cervical vertebral bodies show preserved height, alignment, and bone mineralization. Disc spaces and prevertebral soft tissues are normal. No significant foraminal encroachment with exception of C4-5 on the right. Odontoid view somewhat limited. IMPRESSION: Some mild foraminal encroachment on the right at C4-5.
== END | disposition home or self-care (01) ==
LOC: RADXRMAIN 15:29
PROVIDERS: ATTEND Family Medicine
DX: M48.02 Spinal stenosis, cervical region (principal)
CPT/HCPCS: 72050

== ENCOUNTER → 2020-03-31 | Outpatient (CLI) | payer BC ==
--- NOTE | 2020-03-31 09:06 | CT ---
EXAMINATION TYPE: CT sinus wo con DATE OF EXAM: 03/31/2020 COMPARISON: 01/12/2019 HISTORY: Chronic sinusitis CT DLP: 648.0 mGycm. Automated Exposure Control for Dose Reduction was Utilized. TECHNIQUE: CT scan of the sinuses is performed without contrast, axial images are obtained, coronal r eformatted images are also reviewed. FINDINGS: The paranasal sinuses including the frontal, ethmoid, sphenoid, and maxillary sinuses bila terally are well-aerated without abnormal opacification. Minimal mucosal thickening involving the eth moid air cells. Postsurgical changes are seen with the ostium of the maxillary sinus widely patent. Visualized portion of mastoid air cells show no abnormal opacification. The globes are intact bilate rally. IMPRESSION: 1. Minimal ethmoidal chronic sinusitis..
== END | disposition home or self-care (01) ==
LOC: RADCTMAIN 08:33
PROVIDERS: ATTEND Otolaryngology
DX: J32.2 Chronic ethmoidal sinusitis (principal)
CPT/HCPCS: 70486

== ENCOUNTER → 2020-06-30 | Outpatient (CLI) | payer BC ==
--- NOTE | 2020-06-30 13:56 | MM ---
Reason for exam: follow-up at short interval from prior study. Last mammogram was performed 9 months ago. History: Benign excisional biopsy of the right breast, 2009. Benign cyst aspiration of the right breast, 2007. Took hormonal contraceptives for 1 year. Physical Findings: Nurse did not find any significant physical abnormalities on exam. MG 3D Diag Mammo W/Cad RT CC and MLO view(s) were taken of the right breast. Prior study comparison: October 09, 2019, right breast MG 3d work up w/cad RT. September 24, 2019, bilateral MG 3d screening mammo w/cad. The breast tissue is heterogeneously dense. This may lower the sensitivity of mammography. Finding #1: Architectural distortion in the upper outer quadrant of the right breast consistent with known excisional changes. Finding #2: There are typically benign round calcifications in the right breast. There is no discrete abnormality. These results were verbally communicated with the patient and result sheet given to the patient on 06/30/20. ASSESSMENT: Benign, BI-RAD 2 RECOMMENDATION: Return to routine screening mammogram schedule for both breasts. Back on schedule for August 2020.
== END | disposition home or self-care (01) ==
LOC: RADMAMWWP 13:17
PROVIDERS: ATTEND Family Medicine
DX: R92.2 Inconclusive mammogram (principal)
CPT/HCPCS: 77061; 77065

== ENCOUNTER 2020-11-29 09:45 | Emergency (ER) | payer BC ==
[2020-11-29 09:50] VITALS: RESP 18; TEMP 97.9
[2020-11-29] MEDS ORDERED: KETOROLAC 15 MG/ML 1 ML VIAL IVP STA (10:21)
[2020-11-29] MEDS ORDERED: DIAZEPAM 5 MG/ML 2 ML INJ IVP STA (10:21)
--- NOTE | 2020-11-29 10:25 | ED ---
General Adult HPI - General Chief complaint: Headache Stated complaint: Neck and shoulder pain, Headache Time Seen by Provider: 11/29/20 09:45 Source: patient, RN notes reviewed, old records reviewed Mode of arrival: ambulatory Limitations: no limitations - History of Present Illness Initial comments: This is a 50-year-old female presents emergency Department complaining of right- sided trapezius pain up into her skull. Patient states she moved furniture 3 days: She woke up Today with significant right-sided trapezius muscle pain. Patient states it's darts just proximal to her shoulder and runs up to the base of her skull and since that time she has started developing headache which has gotten progressively worse. Patient states now the headache is on top of her head on the right side. Patient denies any history of migraines. Patient states when she moves her neck the headache does get worse. Patient denies any fever chills. Patient denies any numbness or weakness she does have some tingling in the right arm. Patient states there was no direct trauma to the neck. Patient denies any chest pain difficulty breathing. Patient denies any recent cough. Patient denies any back pain. - Related Data Home Medications Medication Instructions Recorded Confirmed ALPRAZolam [Xanax] 0.25 mg PO BID PRN 12/09/17 11/29/20 Sertraline [Zoloft] 50 mg PO HS 12/09/17 11/29/20 Amitriptyline HCl [Elavil] 25 mg PO HS 11/29/20 11/29/20 Ibuprofen [Motrin Ib] 600 mg PO Q8H PRN 11/29/20 11/29/20 Naproxen Sodium [Aleve] 440 mg PO DAILY PRN 11/29/20 11/29/20 Previous Rx's Medication Instructions Recorded Cyclobenzaprine [Flexeril] 10 mg PO TID #20 tab 11/29/20 Ketorolac [Toradol] 10 mg PO Q6HR #15 tab 11/29/20 Allergies Allergy/AdvReac Type Severity Reaction Status Date / Time prochlorperazine Allergy Dyspnea Verified 11/29/20 10:41 [From Compazine] Review of Systems ROS Statement: Those systems with pertinent positive or pertinent negative responses have been documented in the HPI. ROS Other: All systems not noted in ROS Statement are negative. Past Medical History Past Medical History: No Reported History History of Any Multi-Drug Resistant Organisms: None Reported Past Surgical History: Adenoidectomy, Tonsillectomy, Tubal Ligation Additional Past Surgical History / Comment(s): tumor removed out of right breast. Past Psychological History: Anxiety, Depression Smoking Status: Never smoker Past Alcohol Use History: Occasional Past Drug Use History: None Reported General Exam - General Exam Comments Initial Comments: GENERAL: Patient is well-developed and well-nourished. Patient is nontoxic and well- hydrated and is in moderate distress. ENT: Neck is soft and supple. No significant lymphadenopathy is noted. Oropharynx is clear. Moist mucous membranes. Neck has full range of motion without eliciting any pain. EYES: The sclera were anicteric and conjunctiva were pink and moist. Extraocular movements were intact and pupils were equal round and reactive to light. Eyelids were unremarkable. PULMONARY: Unlabored respirations. Good breath sounds bilaterally. No audible rales rhonchi or wheezing was noted. CARDIOVASCULAR: There is a regular rate and rhythm without any murmurs gallops or rubs. ABDOMEN: Soft and nontender with normal bowel sounds. SKIN: Skin is clear with no lesions or rashes and otherwise unremarkable. NEUROLOGIC: Patient is alert and oriented x3. Cranial nerves II through XII are grossly intact. Motor and sensory are also intact. Normal speech, volume and content. Symmetrical smile. MUSCULOSKELETAL: Normal extremities with adequate strength and full range of motion. Palpating the patient's right trapezius muscle up into the base of skull reproduces her pain. Patient's scalp is nontender. LYMPHATICS: No significant lymphadenopathy is noted PSYCHIATRIC: Normal psychiatric evaluation. Limitations: no limitations Course Vital Signs 11/29/20 11/29/20 09:47 11:34 Temperature 97.9 F Pulse Rate 63 69 Respiratory 18 18 Rate Blood Pressure 139/69 129/69 O2 Sat by Pulse 95 99 Oximetry Medical Decision Making - Medical Decision Making EKG shows normal sinus rhythm at [address] interval 172 QRS is 84 QT interval 4:30 QTC is 440. Patient's EKG shows no ST segment elevation or depression. Patient received Toradol because she did not want any narcotics. Patient did not want take Valium but eventually took Valium. Patient states her shoulder pain went away but she still remained with a headache. I ordered some droperidol patient did not want take droperidol. Patient has first set her and be discharged home she can sleep at home. Patient refuses any more medication or workup at this time. I indicated to the patient that I prefer she takes medications see if we can get her pain control and if not we will have to further workup. CT of the brain shows no acute abnormality. C-spine x-ray shows some foraminal encroachment on C4-C5 on the right. Disposition Clinical Impression: Trapezius muscle strain, Headache Disposition: HOME SELF-CARE Condition: Good Instructions (If sedation given, give patient instructions): Muscle Strain (ED), Acute Headache (ED) Prescriptions: Cyclobenzaprine [Flexeril] 10 mg PO TID #20 tab Ketorolac [Toradol] 10 mg PO Q6HR #15 tab Is patient prescribed a controlled substance at d/c from ED?: No Referrals: Annamarie Garcia MD [Primary Care Provider] - 1-2 days Time of Disposition: 12:39
--- NOTE | 2020-11-29 11:16 | XR ---
Cervical spine HISTORY: Neck pain 5 views of the cervical spine correlated prior exam 03/10/2020 There is no significant interval change. Loss of disc height present at C2-3, C5-6, there is mild spo ndylosis. Prevertebral soft tissues are maintained. Cervical vertebral bodies show preserved height a nd alignment. No significant foraminal encroachment with exception of C4-5 on the right shows some mi ld encroachment as noted on prior exam. IMPRESSION: Degenerative disc disease is mild.
--- NOTE | 2020-11-29 11:50 | CT ---
EXAMINATION TYPE: CT brain wo con DATE OF EXAM: 11/29/2020 COMPARISON: Prior head CT dated 01/12/2019 HISTORY: Bilateral shoulder and neck pain. Headache CT DLP: 1099.4 mGycm. Automated Exposure Control for Dose Reduction was Utilized. TECHNIQUE: CT scan of the head is performed without contrast. FINDINGS: There is no acute intracranial hemorrhage, mass effect, or midline shift identified. The ventricles and sulci are within normal limits in size. The globes are intact and the visualized sin uses are clear. IMPRESSION: No acute intracranial hemorrhage, mass effect, or midline shift is seen.
[2020-11-29] MEDS ORDERED: SODIUM CHLORIDE 0.9% 1,000 ML IV ONE (12:08)
[2020-11-29] MEDS ORDERED: ASPIRIN-ACET-CAFF 250-250-65MG 1 EACH TAB PO STA (12:41)
[2020-11-29 13:09] VITALS: BP 145/89; PULSE 70
== END 2020-11-29 13:08 | disposition home or self-care (01) ==
LOC: EC 09:45
DX: S29.012A Strain of muscle and tendon of back wall of thorax, initial encounter (principal); R51.9 Headache, unspecified; F32.9 Major depressive disorder, single episode, unspecified; F41.9 Anxiety disorder, unspecified; Z79.1 Long term (current) use of non-steroidal anti-inflammatories (NSAID); Z79.899 Other long term (current) drug therapy; X58.XXXA Exposure to other specified factors, initial encounter
CPT/HCPCS: 93005; 72050; 70450; 99284; 96374; 96375; 96361; J3360; J1885

== ENCOUNTER 2020-11-30 15:19 | Emergency (ER) | payer BC ==
[2020-11-30 15:26] VITALS: BP 129/66; PULSE 79; RESP 18; TEMP 97.9
[2020-11-30] MEDS ORDERED: KETOROLAC 15 MG/ML 1 ML VIAL IVP STA (16:55)
[2020-11-30] MEDS ORDERED: ONDANSETRON 4 MG/2 ML VIAL IVP STA (16:55)
[2020-11-30] MEDS ORDERED: HYDROmorphone 0.5 MG/0.5 ML SYRINGE IVP STA (16:55)
--- NOTE | 2020-11-30 17:23 | ED ---
Headache HPI - General Chief Complaint: Headache Stated Complaint: head pain-revisit Time Seen by Provider: 11/30/20 16:46 Mode of arrival: wheelchair Limitations: no limitations - History of Present Illness Initial Comments: 50-year-old female presenting today for chief complaint of headache. Patient states she was seen here yesterday for a headache and feels this is not better at all. Patient states on she was moving very heavy furniture such as couches she states she woke up Monday with some soreness in her shoulders and neck. Patient states she also had a headache she states it worsened over the course of the weekend because in the front of the head 12 out of 10 increased when standing or sitting decrease in laying. She denies any weakness or sensation deficit of the upper or lower extremities she admits to photophobia. She denies fevers she denies speech changes or visual changes. Patient denies any cough or upper respiratory symptoms but does state she has sinus pressure and suffers from sinus headaches on occasion. Patient is unsure if this is related to lifting/muscle tension. she states she does have sinus pain but doesnt believe it is related. remaining ROS (-). upon arrival pateint appears well nontoxic in on acute distress. - Related Data Home Medications Medication Instructions Recorded Confirmed ALPRAZolam [Xanax] 0.25 mg PO BID PRN 12/09/17 11/29/20 Sertraline [Zoloft] 50 mg PO HS 12/09/17 11/29/20 Amitriptyline HCl [Elavil] 25 mg PO HS 11/29/20 11/29/20 Ibuprofen [Motrin Ib] 600 mg PO Q8H PRN 11/29/20 11/29/20 Naproxen Sodium [Aleve] 440 mg PO DAILY PRN 11/29/20 11/29/20 Previous Rx's Medication Instructions Recorded Cyclobenzaprine [Flexeril] 10 mg PO TID #20 tab 11/29/20 Ketorolac [Toradol] 10 mg PO Q6HR #15 tab 11/29/20 Allergies Allergy/AdvReac Type Severity Reaction Status Date / Time prochlorperazine Allergy Dyspnea Verified 11/29/20 10:41 [From Compazine] Review of Systems ROS Statement: Those systems with pertinent positive or pertinent negative responses have been documented in the HPI. ROS Other: All systems not noted in ROS Statement are negative. Past Medical History Past Medical History: No Reported History History of Any Multi-Drug Resistant Organisms: None Reported Past Surgical History: Adenoidectomy, Tonsillectomy, Tubal Ligation Additional Past Surgical History / Comment(s): tumor removed out of right breast. Past Psychological History: Anxiety, Depression Smoking Status: Never smoker Past Alcohol Use History: Occasional Past Drug Use History: None Reported General Exam - General Exam Comments Initial Comments: General: The patient is awake and alert, in no distress Eye: +3 mm pupils are equal, round and reactive to light, extra-ocular movements are intact. No nystagmus. There is normal conjunctiva bilaterally. No signs of icterus. Ears, nose, mouth and throat: There are moist mucous membranes and no oral lesions. Neck: The neck is supple, there is no tenderness or JVD. Cardiovascular: There is a regular rate and rhythm. No murmur, rub or gallop is appreciated. Respiratory: Lungs are clear to auscultation, respirations are non-labored, breath sounds are equal. No wheezes, stridor, rales, or rhonchi. Musculoskeletal: Normal ROM, no tenderness. Strength 5/5. Sensation intact. Radial pulses equal bilaterally 2+. Neurological: A&O x 3. CN II-XII intact, memory intact to immediately, intermediate and correction recall. Able to follow simple verbal. Able to name a common object. High quality, labial (pa) and lingual (la) speech. Low quality posterior pharynx/larynx (ga) voice sounds. Able to express general knowledge (days in a week). No hemineglect or inattention noted. Finger agnosia (-) and spatially oriented (identified L index finger touched R shoulder with L index finger).Light touch and temperature sensation present over the face, chest, abdomen, back, UE bilaterally, and LE bilaterally. Able to localize point during point localization b/l and extinction. No visible bulk atrophy, hypertrophy, fasciculations, or myoclonus of the UE or LE b/l. Full PROM in UE and LE b/l. Bilateral muscle strength 5/5 for the following muscles: deltoid, biceps, triceps, brachioradialis, wrist extensors/flexor, hip flexor, hip abductors/adductors, hamstrings, quadriceps, feet dorsiflexors/plantar flexors. Finger to nose, finger to the examiners finger, and heel to el coordinated and accurate b/l. Coordinated and even demonstration of hand flip, finger to thumb, and toe tap b/l.Gait is coordinated and even in stride.. Maintains balance with monopedal stance. (-) pronator drift. No nuchal rigidity. (-) Brudzinskis and Kernig signs. Skin: Skin is warm and dry and no rashes or lesions are noted. Psychiatric: Cooperative, appropriate mood & affect, normal judgment. Limitations: no limitations Course Vital Signs 11/30/20 15:24 Temperature 97.9 F Pulse Rate 79 Respiratory 18 Rate Blood Pressure 129/66 O2 Sat by Pulse 100 Oximetry Medical Decision Making - Medical Decision Making 50-year-old female with history of chronic neck pain with previous foraminal narrowing in 2016 presenting for neck/shoulder tenderness after lifting couches and other furniture this past week. Patient states she's also had a headache. Patient states she's had a headache for the past they're related to her sinuses. Patient does have bilateral maxillary sinus tenderness. Patient is no sinus sinusitis on CT brain is obtained the day prior. There is some foraminal narrowing noted on the imaging of the neck performed by Dr. David. Patient has no focal neurological deficits today and examination. No nuchal rigidity or irritation signs. Patient's pain sniffily improved after management which she initially refused yesterday. I recommend patient get outpatient MRI of the cervical spine and brain, as well as follow-up with orthopedic spine and primary care provider. If patient's headache is worsening returns if she develops fevers, focal deficits, or any other concerning new signs or symptoms she is immediately to return to the ER. Discussed the case with attending provider Dr. David who is agreeable to this care plan and discharge at this time. Disposition Clinical Impression: Headache, Cervical strain Disposition: HOME SELF-CARE Condition: Good Instructions (If sedation given, give patient instructions): Acute Headache (ED) Additional Instructions: Please use medication as discussed. Please follow-up with family doctor in the next 2 days. Recommend outpatient cervical MRI, return for fevers, stiffness, weakness of arms or legs, worsening pain as discussed. Please return to emergency room if the symptoms increase or worsen or for any other concerns. Is patient prescribed a controlled substance at d/c from ED?: No Referrals: Annamarie Garcia MD [Primary Care Provider] - 1-2 days Time of Disposition: 19:26
[2020-11-30] MEDS ORDERED: DIAZEPAM 5 MG/ML 2 ML INJ IVP STA (18:19)
== END 2020-11-30 19:33 | disposition home or self-care (01) ==
LOC: EC 15:19
DX: R51.9 Headache, unspecified (principal); S16.1XXA Strain of muscle, fascia and tendon at neck level, initial encounter; F32.9 Major depressive disorder, single episode, unspecified; F41.9 Anxiety disorder, unspecified; Z90.89 Acquired absence of other organs; Z79.899 Other long term (current) drug therapy; Z88.8 Allergy status to other drugs, medicaments and biological substances; X50.0XXA Overexertion from strenuous movement or load, initial encounter
CPT/HCPCS: 99284; 96374; 96375 ×3; J3360; J2405; J1885; J1170

== ENCOUNTER → 2021-01-11 | Outpatient (CLI) | payer BC | END | disposition home or self-care (01) | LOC: RADMRIMAIN 20:58 | PROVIDERS: ATTEND Family Medicine | DX: Z53.9 Procedure and treatment not carried out, unspecified reason (principal) ==

== ENCOUNTER → 2021-06-23 | Outpatient (CLI) | payer BC ==
--- NOTE | 2021-06-25 11:56 | MM ---
Reason for exam: screening (asymptomatic). Last mammogram was performed 1 year ago. History: Benign excisional biopsy of the right breast, 2010. Benign cyst aspiration of the right breast, 2007. Took hormonal contraceptives for 1 year. Physical Findings: A clinical breast exam by your physician is recommended on an annual basis and results should be correlated with mammographic findings. MG Screening Mammo w CAD Bilateral CC and MLO view(s) were taken. Prior study comparison: June 30, 2020, right breast MG 3d diag mammo w/cad RT. October 09, 2019, right breast MG 3d work up w/cad RT. The breast tissue is heterogeneously dense. This may lower the sensitivity of mammography. Focal asymmetry inner lower right breast zone B. This finding is changed when compared with previous exams. ASSESSMENT: Incomplete: need additional imaging evaluation, BI-RAD 0 RECOMMENDATION: Special view mammogram of the right breast. If lesion persists on supplemental views, image directed ultrasound is recommended. [facility] will attempt to contact patient to return for supplemental views and ultrasound if indicated.
== END | disposition home or self-care (01) ==
LOC: RADMAMWWP 09:28
PROVIDERS: ATTEND Internal Medicine Geriatric Medicine
DX: Z12.31 Encounter for screening mammogram for malignant neoplasm of breast (principal)
CPT/HCPCS: 77067

== ENCOUNTER → 2021-07-06 | Outpatient (CLI) | payer BC ==
--- NOTE | 2021-07-06 13:52 | MM ---
Reason for exam: additional evaluation requested from abnormal screening. Last mammogram was performed less than 1 month ago. History: Family history of breast cancer in paternal cousin. Benign excisional biopsy of the right breast, 2009. Benign cyst aspiration of the right breast, 2007. Took hormonal contraceptives for 1 year. Physical Findings: Nurse did not find any significant physical abnormalities on exam. MG 3D Work Up W/Cad RT Spot compression CC, spot compression MLO, and LM view(s) were taken of the right breast. Prior study comparison: June 23, 2021, bilateral MG screening mammo w CAD. October 09, 2019, right breast MG 3d work up w/cad RT. September 24, 2019, bilateral MG 3d screening mammo w/cad. August 17, 2018, bilateral MG 3d screening mammo w/cad. The breast tissue is heterogeneously dense. This may lower the sensitivity of mammography. No suspicious lesion persists. These results were verbally communicated with the patient and result sheet given to the patient on 07/06/21. ASSESSMENT: Negative, BI-RAD 1 RECOMMENDATION: Return to routine screening mammogram schedule for both breasts.
== END | disposition home or self-care (01) ==
LOC: RADMAMWWP 10:06
PROVIDERS: ATTEND Internal Medicine Geriatric Medicine
DX: R92.2 Inconclusive mammogram (principal); Z80.3 Family history of malignant neoplasm of breast
CPT/HCPCS: 77061; 77065

== ENCOUNTER → 2021-07-26 | Outpatient (CLI) | payer BC ==
--- NOTE | 2021-07-26 12:01 | US ---
EXAMINATION TYPE: US abdomen complete DATE OF EXAM: 07/26/2021 COMPARISON: NONE CLINICAL HISTORY: R10.9 Abdominal pain. Heartburn. EXAM MEASUREMENTS: Liver Length: 17.6 cm Gallbladder Wall: 0.1 cm CBD: 0.6 cm Spleen: 10.6 cm Right Kidney: 10.6 x 5.0 x 4.4 cm Left Kidney: 11.4 x 5.2 x 5.0 cm Pancreas: Tail obscured by overlying bowel gas Liver: wnl Gallbladder: wnl Evidence for sonographic Burch's sign: neg CBD: Mildly dilated Spleen: wnl Right Kidney: No hydronephrosis or masses seen Left Kidney: No hydronephrosis or masses seen Upper IVC: wnl Abd Aorta: No AAA visualized The liver is homogenous. The intrahepatic portion of the IVC and proximal abdominal aorta are within normal limits. There is no evidence of cholelithiasis. Common bile duct is prominent. The visuali zed portions of the pancreas are homogenous. The spleen is unremarkable. Kidneys are symmetric and free of hydronephrosis. Cortical medullary differentiation is maintained. No renal lesions are seen. IMPRESSION: There is some mild prominence of the common bile duct, correlate and consider MRCP as ind icated, somewhat limited exam
== END | disposition home or self-care (01) ==
LOC: RADUSWWP 10:31
PROVIDERS: ATTEND Family Medicine
DX: R10.9 Unspecified abdominal pain (principal); R12 Heartburn
CPT/HCPCS: 76700

== ENCOUNTER → 2021-12-14 | Outpatient (CLI) | payer BC ==
--- NOTE | 2021-12-14 13:34 | XR ---
EXAMINATION TYPE: XR cervical spine comp DATE OF EXAM: 12/14/2021 COMPARISON: NONE HISTORY: Pain TECHNIQUE: Four views are submitted. FINDINGS: The odontoid is intact. There are no compression deformities. The prevertebral soft tissue structur es are within normal limits. IMPRESSION: 1. No acute process.
== END | disposition home or self-care (01) ==
LOC: RADXRMAIN 13:15
PROVIDERS: ATTEND Nurse Practitioner Gerontology
DX: M54.2 Cervicalgia (principal)
CPT/HCPCS: 72050

== ENCOUNTER → 2022-02-25 | Outpatient (CLI) | payer BC ==
--- NOTE | 2022-02-25 14:47 | XR ---
Lumbar spine HISTORY: Back pain for 1 month, M 56.9 3 views of the lumbar spine There is multilevel spondylosis. Slight spinal curvature could be positional. Lumbar vertebral bodies show preserved height and bone mineralization. Focal area of increased attenuation over the right sa laura could be due to bone islands. There is loss of disc height L2-3 and L3-4. Sclerosis in the poste rior elements is consistent with facet arthropathy. IMPRESSION: Degenerative disc disease and facet arthropathy, additional findings above.
== END | disposition home or self-care (01) ==
LOC: RADXRMAIN 14:01
PROVIDERS: ATTEND Family Medicine
DX: M51.36 Other intervertebral disc degeneration, lumbar region (principal); M47.816 Spondylosis without myelopathy or radiculopathy, lumbar region
CPT/HCPCS: 72100

== ENCOUNTER → 2022-08-15 | Outpatient (CLI) | payer BC ==
[2022-08-15 23:26] LABS: Basophils # (A) 0.06 X 10*3/uL (0.00-0.10); Eosinophils # (A) 0.07 X 10*3/uL (0.04-0.35); Eosinophils % (A) 1.2 %; HCT 36.1 % (37.2-46.3); HGB 11.4 g/dL (12.0-15.0); Immature Grans, Automated 0.3 %; Lymphocytes # (A) 2.21 X 10*3/uL (0.90-5.00); Lymphocytes % (A) 36.7 %; MCH 28.4 pg (27.0-32.0); MCHC 31.6 g/dL (32.0-37.0); Mean Platelet Volume 11.4 fL (9.5-12.2); Monocytes # (A) 0.46 X 10*3/uL (0.20-1.00); Monocytes % (A) 7.6 %; NRBC Per 100 WBC 0 /100 WBCS (0.0-0.0); Neutrophils # (A) 3.21 X 10*3/uL (1.80-7.70); Neutrophils % (A) 53.2 %; Platelet Count 262 X 10*3/uL (140-440); RBC 4.01 X 10*6/uL (4.10-5.20); RDW 14.7 % (11.5-14.5); WBC 6.03 X 10*3/uL (4.50-10.00)
[2022-08-15 23:43] LABS: African American GFR (CKD) 121.7 (60.0-200.0); Anion Gap 9.8 mmol/L (10.00-18.00); Blood Urea Nitrogen 17.3 mg/dL (9.0-27.0); Carbon Dioxide 25.7 mmol/L (20.0-27.5); Potassium 4.1 mmol/L (3.5-5.5)
== END | disposition home or self-care (01) ==
LOC: LABPAT 15:53
PROVIDERS: ATTEND Obstetrics & Gynecology
DX: Z01.812 Encounter for preprocedural laboratory examination (principal); G89.29 Other chronic pain; N93.9 Abnormal uterine and vaginal bleeding, unspecified
CPT/HCPCS: 80051; 82565; 82947; 84520; 85025; 87086

== ENCOUNTER 2022-08-23 05:36 | Day surgery (SDC) | payer BC ==
--- NOTE | 2022-08-17 15:49 | P.HPIHPCON ---
History of Present Illness H&P Date: 08/17/22 Chief Complaint: Abnormal uterine bleeding Ms. Breen is a 52 year old with abnormal uterine bleeding (AUB-L/P) and pelvic pain. At her last visit, a pap smear was collected which was NILM and HPV negative. An endometrial biopsy was also performed, which showed endometrial polyps but was negative for dysplasia. The patient states that since her last visit she had another heavy period lasting 7 days with 10-15 pads per day used. At times she required 2 pads due to the heaviness of her flow. She also requires a pee pad on her bedding overnight to protect from leaks. She often feels lightheaded. She has some intermenstrual spotting. Pelvic ultrasound shows a uterus measuring 10 x 5 x 5 cm with diffuse heterogeneity consistent with a 2.5 cm anterior lower uterine segment fibroid and a 3 cm posterior fundal fibroid. Ovaries were normal bilaterally. There is suspicion on the ultrasound for adenomyosis. Consent for Procedure: I have explained the operation/procedure to the patient, including the risks, benefits, side effects, alternative therapies (including not receiving the proposed treatment or service), the likelihood of the patient achieving his/her goals, and potential recuperation problems for the procedure/sedation/analgesia, as well as any blood products, if indicated. I also explained to the patient the risks, benefits and side effects of the alternatives, as well as the risks related to not receiving the proposed procedure, care, treatment, or services. - Constitutional Constitutional: Reports weakness, Denies chills, Denies fever, Denies weight gain, Denies weight loss - Cardiovascular Cardiovascular: Denies chest pain, Denies syncope - Respiratory Respiratory: Denies dyspnea - Gastrointestinal Gastrointestinal: Reports constipation, Denies nausea, Denies vomiting - Genitourinary (Female) Genitourinary: Reports abnormal vaginal bleeding, Reports dysmenorrhea, Denies stress incontinence, Denies urge incontinence, Denies urgency, Denies urinary frequency - Menstruation Menstruation: Reports menses 1-7 days, Reports period heavy Past Medical History Past Medical History: No Reported History History of Any Multi-Drug Resistant Organisms: None Reported Past Surgical History: Adenoidectomy, Tonsillectomy, Tubal Ligation Additional Past Surgical History / Comment(s): tumor removed out of right breast. Past Psychological History: Anxiety, Depression Smoking Status: Never smoker Past Alcohol Use History: Occasional Past Drug Use History: None Reported Medications and Allergies Home Medications Medication Instructions Recorded Confirmed Type Sertraline [Zoloft] 1 tab PO Q24HR 08/17/22 08/17/22 History Allergies Allergy/AdvReac Type Severity Reaction Status Date / Time prochlorperazine Allergy Dyspnea Verified 11/29/20 10:41 [From Compazine] Surgical - Exam - Abdomen Abdomen: soft, non tender - Genitourinary Cervix grossly unremarkable. Uterus nontender to palpation, no masses appreciated, midline in position with normal mobility. No adnexal masses appreciated. normal external genitalia Assessment and Plan Assessment: 52 y/o with AUB-L/P and suspected adenomyosis who presents for Robotic Assisted Total Laparoscopic Hysterectomy, Bilateral Salpingectomy, Cystoscopy. Possible Laparotomy, possible saplingoophorectomy. Risks, benefits, and alternatives were discussed with the patient including risk of bleeding (patient willing to accept a blood transfusion), infection, VTE postoperatively, and damage to surrounding structures including bowel/bladder/ureters. Patient understands these risks and desires to proceed with surgery as scheduled. Plan: Proceed with surgery as scheduled. Time with Patient: Less than 30
[2022-08-19 09:46] VITALS: BMI 31.5
[2022-08-23] MEDS ORDERED: ONDANSETRON 4 MG/2 ML VIAL ONE (06:13)
[2022-08-23] MEDS ORDERED: LACTATED RINGERS 1,000 ML IV ONE (06:15)
[2022-08-23] MEDS ORDERED: SCOPOLAMINE 1 MG/72 HR PATCH TRANSDERM ONE (06:45)
[2022-08-23] MEDS ORDERED: ONDANSETRON 4 MG/2 ML VIAL IVP ONE ×2 (06:45→08:09)
[2022-08-23] MEDS ORDERED: DEXAMETHASONE SOD PHOSPHATE 4 MG/ML 1 ML VIAL IVP ONE (06:46)
[2022-08-23] MEDS ORDERED: fentaNYL (PF) 50 MCG/ML 2 ML AMP ONE (07:30)
[2022-08-23] MEDS ORDERED: KETOROLAC 15 MG/ML 1 ML VIAL ONE (07:30)
[2022-08-23] MEDS ORDERED: NEOSTIGMINE 1 MG/ML 10 ML VIAL ONE (07:30)
[2022-08-23] MEDS ORDERED: LIDOCAINE 2% INJ 20 MG/ML (2 ML VIAL) ONE (07:30)
[2022-08-23] MEDS ORDERED: MIDAZOLAM 2 MG/2 ML VIAL IVP ONE (07:30)
[2022-08-23] MEDS ORDERED: PROPOFOL 10 MG/ML 20 ML VIAL IV ONE (07:30)
[2022-08-23] MEDS ORDERED: ROCURONIUM 10 MG/ML (5 ML VIAL) IV ONE (07:30)
[2022-08-23] MEDS ORDERED: GLYCOPYRROLATE 0.2 MG/ML 2 ML VIAL ONE (07:30)
[2022-08-23] MEDS ORDERED: SUCCINYLCHOLINE CHLORIDE 200 MG/10 ML VIAL IV ONE (07:30)
[2022-08-23] MEDS ORDERED: LACTATED RINGERS 1,000 ML IV SCH (08:09)
[2022-08-23] MEDS ORDERED: HYDROmorphone 0.5 MG/0.5 ML SYRINGE IVP PRN (08:09)
[2022-08-23] MEDS ORDERED: DEXAMETHASONE SOD PHOSPHATE 4 MG/ML 1 ML VIAL IV ONE (08:09)
[2022-08-23] MEDS ORDERED: BUPIVACAINE (PF) 0.5% 30 ML VIAL SQ ONE ×2 (08:39)
[2022-08-23] MEDS ORDERED: diphenhydrAMINE 50 MG/ML 1 ML VIAL IVP PRN ×2 (09:24)
[2022-08-23] MEDS ORDERED: NALOXONE 0.4 MG/ML 1 ML VIAL IV PRN (09:24)
[2022-08-23] MEDS ORDERED: diphenhydrAMINE 25 MG CAP PO PRN (09:24)
[2022-08-23] MEDS ORDERED: METOCLOPRAMIDE 5 MG/ML 2 ML VIAL IVP PRN (09:24)
[2022-08-23] MEDS ORDERED: diphenhydrAMINE 50 MG CAP PO PRN (09:24)
[2022-08-23] MEDS ORDERED: ZOLPIDEM 5 MG TAB PO PRN (09:24)
[2022-08-23] MEDS ORDERED: ONDANSETRON 4 MG/2 ML VIAL IVP PRN (09:24)
[2022-08-23] MEDS ORDERED: HYDROmorphone 2 MG TAB PO PRN (09:26)
--- NOTE | 2022-08-23 09:47 | P.OP ---
Date of Procedure: 08/23/22 Preoperative Diagnosis: Abnormal Uterine Bleeding, Uterine Fibroids, Endometrial Polyps, Suspected Adenomyosis Postoperative Diagnosis: Abnormal Uterine Bleeding, Uterine Fibroids, Endometrial Polyps, Suspected Adenomyosis Procedure(s) Performed: Robotic-assisted total laparoscopic hysterectomy with bilateral salpingectomy, cystoscopy Implants: None Anesthesia: LUISA Surgeon: Luma [facility] Administrator #1: Jose Luis Singh Estimated Blood Loss (ml): 50 IV fluids (ml): 600 Urine output (ml): 200 Pathology: other (Uterus, cervix, bilateral segments of fallion tubes) Condition: stable Disposition: floor Indications for Procedure: 52 y/o with AUB-L/P and suspected adenomyosis who presents for Robotic Assisted Total Laparoscopic Hysterectomy, Bilateral Salpingectomy, Cystoscopy. Possible Laparotomy, possible saplingoophorectomy. Risks, benefits, and alternatives were discussed with the patient including risk of bleeding (patient willing to accept a blood transfusion), infection, VTE postoperatively, and damage to surrounding structures including bowel/bladder/ureters. Patient understands these risks and desires to proceed with surgery as scheduled. Operative Findings: Bulky uterus with multiple fibroids noted. Fallopian tubes were consistent with post operative changes after tubal ligation. Bilateral ovaries were grossly unremarkable. Bowel and surrounding structures were surveyed with no injury noted from abdominal entry. Description of Procedure: Prior to the beginning of the procedure, the team paused to verify the patients identity, the procedure to be performed (in accordance with the consent,) and the correct side/site. The patient was positioned appropriately. We addressed antibiotic prophylaxis and fluids for irrigation as applicable to this patient. Any safety precautions were addressed. The patient was taken to the operating room where general anesthesia was induced without difficulty. She was then positioned in the dorsal lithotomy position in [facility]. Positioning included placing her arms at her sides. After the patient was placed in what was felt to be a neurologically safe position, deep Trendelenburg position was tested prior to the operative procedure, to ensure that she would not move on the operating table. The patient was then prepped and draped in the normal sterile fashion for a combined abdominovaginal surgery. A Meyer catheter was placed in the bladder for continuous drainage. Uterus was sounded to 10 cm. A Yappn-LookFlow manipulator was placed in the uterus for manipulation. Attention was then placed to the abdomen. A normal length Veress needle was introduced into the abdominal cavity while tenting the abdominal wall. Low pressure was noted confirming appropriate placement. The abdomen was then insufflated to 15 mmHg. The Veress needle was removed, and an 8 mm port was placed at the umbilical site under direct laparoscopic visualization. Visualization of the intraabdominal cavity showed normal pelvic anatomy without evidence of adhesions. The port sites for the remainder of the case were then measured out and placed under direct visualization. On the left side, one 8 mm robotic export sales assistant ports was placed and one 10 mm robotic export sales assistant port was placed. On the right side, one 8 mm robotic export sales assistant port was placed. The [employer] robot was then brought to the operative field in a lateral docking style to the left of the patient and the robot was docked to the ports. All robotic instruments were brought into the pelvis under direct visualization with monopolar scissors in arm #1, the robotic laparoscopic in arm #2, and vessel sealer in arm #3. Bilateral ureters were visualized through the peritoneum on the pelvic side nuñez. The right fallopian tube was then cut and cauterized with vessel sealer after visualizing the right ureter. The right uteroovarian ligament was cauterized and cut. The right round ligament was cauterized and cut. Broad ligament was opened and bladder flap created. This was repeated on the left side. The peritoneum of the bilateral broad ligaments was then taken down and monopolar cautery used to skeletonize the uterine arteries bilaterally. During the course of this dissection, the anterior leaf of the broad ligament was also taken down over the anterior aspect of the uterus and cervix to create a bladder flap. The bladder was then dissected off the cervix and upper vagina with the monopolar scissors and gentle blunt dissection. The bilateral uterine arteries were then cauterized and divided at the level of the internal cervical os. The monopolar cautery was used to make the colpotomy. Total hysterectomy was thus completed and uterus, along with the cervix was removed vaginally. Cuff was closed with Stratafix sutures. The robot was undocked from the trocars and brought out of the operative field. The remainder of the ports were removed under direct visualization, and the gas was allowed to escape. All skin incisions were closed with 4-0 Monocryl and dermabond. Attention was turned to the pelvis, where the meyer catheter was removed and a 70-degree cystourethroscope was used to confirm that there was trauma to the bladder or the urethra. Bilateral ureteral jets were visualized. Therefore, the bladder was drained and the meyer catheter was replaced. Hemostasis was noted to be e xcellent throughout, and final sponge, instrument, and needle count was noted to be correct. The patient was moved back to the preoperative holding area in stable condition having tolerated the procedure well.
[2022-08-23] MEDS: LACTATED RINGERS 1,000 ML IV SCH ×4 (10:02→19:30)
[2022-08-23] MEDS: ACETAMINOPHEN TAB 500 MG TAB PO SCH ×3 (11:14→23:26)
[2022-08-23] MEDS: KETOROLAC 15 MG/ML 1 ML VIAL IVP SCH ×2 (15:25→22:03)
[2022-08-23] MEDS ORDERED: ENOXAPARIN 40 MG/0.4 ML SYRINGE SQ SCH (21:00)
[2022-08-23] MEDS: SENNOSIDES-DOCUSATE SODIUM 1 EACH TAB PO SCH (22:01)
[2022-08-24] MEDS: KETOROLAC 15 MG/ML 1 ML VIAL IVP SCH (04:06)
[2022-08-24 04:21] VITALS: RESP 16; TEMP 98.4
[2022-08-24 05:04] LABS: Basophils % (A) 0 %; Eosinophils % (A) 0 %; HCT 31.9 % (34.0-46.0); HGB 10.6 gm/dL (11.4-16.0); Hypochromasia Slight; Lymphocytes # (A) 1.5 k/uL (1.0-4.8); Lymphocytes % (A) 19 %; MCH 30.1 pg (25.0-35.0); MCHC 33.3 g/dL (31.0-37.0); MCV 90.3 fL (80.0-100.0); Monocytes # (A) 0.4 k/uL (0-1.0); Monocytes % (A) 5 %; Neutrophils # (A) 5.9 k/uL (1.3-7.7); Neutrophils % (A) 73 %; Platelet Count 194 k/uL (150-450); RBC 3.54 m/uL (3.80-5.40); RDW 13.9 % (11.5-15.5)
[2022-08-24] MEDS: ACETAMINOPHEN TAB 500 MG TAB PO SCH (07:33)
[2022-08-24 08:17] VITALS: BP 103/60; PULSE 77
[2022-08-24] MEDS: SENNOSIDES-DOCUSATE SODIUM 1 EACH TAB PO SCH (08:17)
--- NOTE | 2022-08-24 08:23 | P.PN ---
Subjective Progress Note Date: 08/24/22 Principal diagnosis: POD#1 status post robotic assisted hysterectomy, bilateral salpingectomy The patient is doing well this morning and had no acute events overnight. She has no complaints this morning. She reports voiding without difficulty, ambulating, and eating/drinking without nausea or vomiting. She has not yet passed flatus but feels as thought it will come soon. She denies chest pain, shortness of breathing, fevers, or chills overnight. She denies pain or swelling in the legs. Objective - Vital Signs Vital signs: Vital Signs Temp 98.4 F 08/24/22 07:30 Pulse 77 08/24/22 07:30 Resp 16 08/24/22 07:30 BP 103/60 08/24/22 07:30 Pulse Ox 98 08/24/22 04:20 FiO2 Intake & Output 08/23/22 08/24/22 08/24/22 18:59 06:59 18:59 Intake Total 1150 1500 Output Total 1970 700 Balance -820 800 Weight 80.5 kg Intake: IV 1150 Oral 1500 Output: Urine 1950 700 Uretheral ([place]) 250 Estimated Blood Loss 20 Other: Voiding Method Indwelling Catheter Indwelling Catheter # Voids 1 - Constitutional General appearance: Present: average body habitus, no acute distress - Gastrointestinal Gastrointestinal Comment(s): Abdominal incisions clean, dry, and intact General gastrointestinal: Present: soft - Psychiatric Psychiatric: Present: A&O x's 3, appropriate affect - Labs CBC & Chem 7: 08/24/22 04:37 Labs: Abnormal Lab Results - Last 24 Hours (Table) 08/24/22 Range/Units 04:37 RBC 3.54 L (3.80-5.40) m/uL Hgb 10.6 L (11.4-16.0) gm/dL Hct 31.9 L (34.0-46.0) % Assessment and Plan Assessment: 52 y/o with AUB-L/P and suspected adenomyosis POD#1 s/p Robotic Assisted Total Laparoscopic Hysterectomy, Bilateral Salpingectomy, Cystoscopy. Plan: - patient meeting all postoperative milestones approrpirately, feeling well Plan: Discharge home today with ibuprofen, acetaminophen, and oxycodone for pain control. Follow up in the office in 2 weeks. Time with Patient: Less than 30
--- NOTE | 2022-08-24 08:30 | P.DS ---
Providers Date of admission: 08/24/22 00:38 Expected date of discharge: 08/24/22 Attending physician: Luma Nixon MD Primary care physician: [facility] Course: 52 y/o s/p LALITA LAKHANI who met postoperative milestones appropriately. She was discharged home on post op day 1 with instructions to follow up in 2 weeks in the office for incision check. Assessment: 52 y/o POD#1 s/p LALITA LAKHANI for AUB-L/P, suspected adenomyosis Patient Condition at Discharge: Good Plan - Discharge Summary Discharge Rx Participant: No New Discharge Prescriptions: New Acetaminophen Tab [Tylenol] 1,000 mg PO Q6H PRN #30 tab PRN Reason: Mild Pain (Scale 1 To 3) Ibuprofen 800 mg PO Q8H PRN #20 tab PRN Reason: Mild Pain (Scale 1 To 3) Continue Sertraline [Zoloft] 1 tab PO Q24HR Discharge Medication List Sertraline [Zoloft] 1 tab PO Q24HR 08/17/22 [History] Acetaminophen Tab [Tylenol] 1,000 mg PO Q6H PRN #30 tab 08/24/22 [Rx] Ibuprofen 800 mg PO Q8H PRN #20 tab 08/24/22 [Rx] Follow up Appointment(s)/Referral(s): Luma Nixon MD [STAFF PHYSICIAN] - 2 Weeks Patient Instructions/Handouts: Laparoscopic Hysterectomy (DC) Activity/Diet/Wound Care/Special Instructions: Activity as tolerated. No lifting heavier than 15 pounds. Pelvic rest for 6 weeks. Discharge Disposition: HOME SELF-CARE
== END 2022-08-24 08:53 | disposition home or self-care (01) ==
LOC: OR 05:36 → 4FBP 09:24 → UNDOADMOB 08-24 00:38 → OR 08-24 00:38 → 4FBP 08-24 00:38 → OR 08-24 08:53 → UNDODISOB 08-24 08:53
PROVIDERS: ATTEND Obstetrics & Gynecology
DX: D25.1 Intramural leiomyoma of uterus (principal); N80.03 Adenomyosis of the uterus; N84.0 Polyp of corpus uteri; F41.9 Anxiety disorder, unspecified; F32.A Depression, unspecified; Z90.89 Acquired absence of other organs; Z90.49 Acquired absence of other specified parts of digestive tract; Z98.51 Tubal ligation status; Z86.59 Personal history of other mental and behavioral disorders; Z79.899 Other long term (current) drug therapy; Z88.9 Allergy status to unspecified drugs, medicaments and biological substances
CPT/HCPCS: 58571; 81025; 86900; 86901; 85025; 86850; 88307; J2250; J0330; J1200; J1100; J2710; J0690; J2405; J1650; J3010; J1885 ×2; J2704; J1170; J2001

== ENCOUNTER 2023-03-31 07:56 | Emergency (ER) | payer BC ==
[2023-03-31 08:05] VITALS: TEMP 97.7
[2023-03-31] MEDS ORDERED: MECLIZINE 12.5 MG TAB PO STA (08:12)
[2023-03-31] MEDS ORDERED: SODIUM CHLORIDE 0.9% 1,000 ML IV STA (08:12)
[2023-03-31 08:37] LABS: Basophils % (A) 1 %; Eosinophils # (A) 0.2 k/uL (0-0.7); Eosinophils % (A) 4 %; HCT 41.6 % (34.0-46.0); Lymphocytes # (A) 1.8 k/uL (1.0-4.8); Lymphocytes % (A) 35 %; MCH 28.9 pg (25.0-35.0); MCHC 31.2 g/dL (31.0-37.0); MCV 92.5 fL (80.0-100.0); Mean Platelet Volume 8.3; Monocytes # (A) 0.3 k/uL (0-1.0); Monocytes % (A) 5 %; Neutrophils # (A) 2.8 k/uL (1.3-7.7); Neutrophils % (A) 53 %; Platelet Count 206 k/uL (150-450); RDW 13.7 % (11.5-15.5); WBC 5.2 k/uL (3.8-10.6)
[2023-03-31 08:48] LABS: ALT 32 U/L (4-34); AST 30 U/L (14-36); African American GFR (CKD) >90 (>60 ml/min/1.73 sqM); Albumin 4.2 g/dL (3.5-5.0); Alkaline Phosphatase 102 U/L (38-126); Anion Gap 8 mmol/L; Blood Urea Nitrogen 17 mg/dL (7-17); Calcium 9.2 mg/dL (8.4-10.2); Carbon Dioxide 23 mmol/L (22-30); Chloride 107 mmol/L (98-107); Glucose 120 mg/dL (74-99); Lipase 54 U/L (23-300); Non-African American GFR(CKD) >90 (>60 ml/min/1.73 sqM); Sodium 138 mmol/L (137-145); Total Bilirubin 0.5 mg/dL (0.2-1.3); Total Protein 6.7 g/dL (6.3-8.2)
--- NOTE | 2023-03-31 08:52 | CT ---
EXAMINATION TYPE: CT brain wo con DATE OF EXAM: 03/31/2023 COMPARISON: 11/29/2020 INDICATION: Dizziness and headache. DLP: 1194.4 mGycm, Automated exposure control for dose reduction was used. CONTRAST: None CT of the brain is performed utilizing 3 mm thick sections through the posterior fossa and 3 mm thick sections through the remaining calvarium. Study is performed within 24 hours of arrival to the hosp ital. No abnormal hyperdensity is present to suggest an acute intracranial hemorrhage. No mass lesion is evident. No acute infarcts are evident. Ventricles and sulci are appropriate for the patient age. Paranasal sinuses and mastoid air cells within the [id number] are clear. IMPRESSIONS: 1. No acute intracranial process. Follow-up MRI can be performed as clinically indicated.
[2023-03-31 08:54] LABS: INR 0.9 (<1.2); Prothrombin Time 9.7 sec (9.0-12.0)
--- NOTE | 2023-03-31 08:59 | ED ---
General Adult HPI - General Chief complaint: Dizziness Stated complaint: syncope Time Seen by Provider: 03/31/23 08:05 Source: patient Mode of arrival: ambulatory Limitations: no limitations - History of Present Illness Initial comments: 53-year-old female presents to the emergency room with multiple complaints. States that she woke this morning and felt acutely dizzy. Rembrandt like she was going to pass out. Attempted to get up from her bed however he fell forward back into the bed. She felt extremely nauseated like she is to throw up. Began having blurred vision. No chest pain or shortness of breath. No unilateral numbness or weakness. did call EMS. The provided her with formula grams of Zofran with only mild improvement in her nausea. She admits that positional changes make her symptoms worse. Saw her doctor who recently diag nosed her with a "blown out eardrum". She admits to sinus pressure 3 weeks. No fevers. No other alleviating, precipitating or modifying factors - Related Data Home Medications Medication Instructions Recorded Confirmed Sertraline [Zoloft] 1 tab PO Q24HR 08/17/22 08/23/22 Previous Rx's Medication Instructions Recorded Acetaminophen Tab [Tylenol] 1,000 mg PO Q6H PRN #30 tab 08/24/22 Ibuprofen 800 mg PO Q8H PRN #20 tab 08/24/22 Azithromycin [Zithromax Z Pack] 1 tab PO DIRECTED #6 tab 03/31/23 Ondansetron Odt [Zofran Odt] 4 mg PO Q8HR PRN #15 tab 03/31/23 Allergies Allergy/AdvReac Type Severity Reaction Status Date / Time prochlorperazine Allergy Dyspnea Verified 03/31/23 08:06 [From Compazine] Review of Systems ROS Statement: Those systems with pertinent positive or pertinent negative responses have been documented in the HPI. ROS Other: All systems not noted in ROS Statement are negative. Past Medical History Past Medical History: GERD/Reflux, Osteoarthritis (OA) Additional Past Medical History / Comment(s): hx covid x3., abnormal uterine bleeding History of Any Multi-Drug Resistant Organisms: None Reported Past Surgical History: Adenoidectomy, Hysterectomy, Tonsillectomy, Tubal Ligation Additional Past Surgical History / Comment(s): tumor removed out of right breast. Past Anesthesia/Blood Transfusion Reactions: Previous Problems w/ Anesthesia, Postoperative Nausea & Vomiting (PONV) Additional Past Anesthesia/Blood Transfusion Reaction / Comment(s): states difficulty waking up. Past Psychological History: Anxiety, Depression Smoking Status: Never smoker Past Alcohol Use History: Occasional Past Drug Use History: Marijuana - Past Family History Mother Family Medical History: Deep Vein Thrombosis (DVT), Pulmonary Embolus Father Family Medical History: Cancer Brother(s) Family Medical History: Pulmonary Embolus Sister(s) Family Medical History: Cancer Additional Family Medical History / Comment(s): brain cancer General Exam Limitations: no limitations General appearance: alert, in no apparent distress Head exam: Present: atraumatic, normocephalic, normal inspection Eye exam: Present: normal appearance, PERRL, EOMI. Absent: scleral icterus, conjunctival injection, periorbital swelling ENT exam: Present: normal exam, mucous membranes moist Neck exam: Present: normal inspection. Absent: tenderness, meningismus, lymphadenopathy Respiratory exam: Present: normal lung sounds bilaterally. Absent: respiratory distress, wheezes, rales, rhonchi, stridor Cardiovascular Exam: Present: regular rate, normal rhythm, normal heart sounds. Absent: systolic murmur, diastolic murmur, rubs, gallop, clicks GI/Abdominal exam: Present: soft, normal bowel sounds. Absent: distended, tenderness, guarding, rebound, rigid Extremities exam: Present: normal inspection, full ROM, normal capillary refill. Absent: tenderness, pedal edema, joint swelling, calf tenderness Back exam: Present: normal inspection Neurological exam: Present: alert, oriented X3, CN II-XII intact Psychiatric exam: Present: normal affect, normal mood Skin exam: Present: warm, dry, intact, normal color. Absent: rash Course Vital Signs 03/31/23 03/31/23 03/31/23 08:01 09:10 09:55 Temperature 97.7 F 97.7 F Pulse Rate 71 58 L 64 Respiratory 18 18 16 Rate Blood Pressure 154/105 142/75 135/92 O2 Sat by Pulse 100 99 100 Oximetry Medical Decision Making - Medical Decision Making Was pt. sent in by a medical professional or institution (, PA, LIQUIFIED NATURAL GAS TECHNICIAN, urgent care, hospital, or [facility]...) When possible be specific @ -No Did you speak to anyone other than the patient for history (EMS, parent, family, police, friend...)? What history was obtained from this source @ -EMS Did you review nursing and triage notes (agree or disagree)? Why? @ -I reviewed and agree with nursing and triage notes Were old charts reviewed (outside hosp., previous admission, EMS record, old EKG, old radiological studies, urgent care reports/EKG's, [facility] records)? Report findings @ -No old charts were reviewed Differential Diagnosis (chest pain, altered mental status, abdominal pain women, abdominal pain men, vaginal bleeding, weakness, fever, dyspnea, syncope, headache, dizziness, GI bleed, back pain, seizure, CVA, palpatations, mental health, musculoskeletal)? @ -Differential Dizziness: Benign paroxysmal positional Vertigo, Menieres disease, otitis media, acoustic neuroma, vertebrobasilar insufficiency, cerebellar stroke, encephalitis, hypovolemic, arrhythmia, coronary artery syndrome, anemia, this is not meant to be an all-inclusive list EKG interpreted by me (3pts min.). @ -Yes and demonstrates sinus rhythm with a rate of 63. AZ interval 187. QRS 94. QTC of 428. No acute ST segment elevations or depressions X-rays interpreted by me (1pt min.). @ -yes, no acute process CT interpreted by me (1pt min.). @ -yes, no acute process U/S interpreted by me (1pt. min.). @ -None done What testing was considered but not performed or refused? (CT, X-rays, U/S, labs)? Why? @ -None What meds were considered but not given or refused? Why? @ -None Did you discuss the management of the patient with other professionals (viji esquivel i.e. , PA, LIQUIFIED NATURAL GAS TECHNICIAN, lab, RT, psych nurse, social services specialist, supervisor marble, teacher, chief environmental commitment officer, egg caser)? Give summary @ -No Was smoking cessation discussed for >3mins.? @ -No Was critical care preformed (if so, how long)? @ -No Were there social determinants of health that impacted care today? How? (Homelessness, low income, unemployed, alcoholism, drug addiction, transportati on, low edu. Level, literacy, decrease access to med. care, senior living, rehab)? @ -No Was there de-escalation of care discussed even if they declined (Discuss DNR or withdrawal of care, Hospice)? DNR status @ -No What co-morbidities impacted this encounter? (DM, HTN, Smoking, COPD, CAD, Cancer, CVA, ARF, Chemo, Hep., AIDS, mental health diagnosis, sleep apnea, morbid obesity)? @ -None Was patient admitted / discharged? Hospital course, mention meds given and route, prescriptions, significant lab abnormalities, going to OR and other pertinent info. @ -Upon arrival patient is placed into room 20. A thorough history and physical exam was performed. IV had been established by EMS. 12-lead EKG is obtained. Laboratory studies were conducted and are all within normal limits. CT the patient's brain is performed due to her persistent balance disturbance. She was given 25 mg of meclizine. Laboratory studies and CT results are discussed the patient. She continues to have headache and therefore I did offer dose of Toradol for which she is agreeable. I discussed diagnosis, differential and treatment options. Patient stable for discharge home at this time. Instructed to take Claritin and Flonase daily. Will be placed on an antibiotic for continued upper respiratory sinus pressure. Instructed follow up with her primary care doctor in 2-4 days. Should her dizziness continue, she should see an ear nose and throat doctor. Patient was agreeable to this plan she is discharged in stable condition Undiagnosed new problem with uncertain prognosis? @ -yes Drug Therapy requiring intensive monitoring for toxicity (Heparin, Nitro, Insulin, Cardizem)? @ -No Were any procedures done? @ -No Diagnosis/symptom? @ -acute vertigo, acute nausea Acute, or Chronic, or Acute on Chronic? @ -acute Uncomplicated (without systemic symptoms) or Complicated (systemic symptoms)? @ -complicated Side effects of treatment? @ -No Exacerbation, Progression, or Severe Exacerbation? @ -No Poses a threat to life or bodily function? How? (Chest pain, USA, MA, pneumonia, PE, COPD, DKA, ARF, appy, cholecystitis, CVA, Diverticulitis, Homicidal, Suicidal, threat to staff... and all critical care pts) @ -No - Lab Data Result diagrams: 03/31/23 08:16 03/31/23 08:16 Lab Results 03/31/23 03/31/23 03/31/23 Range/Units 08:16 08:16 08:16 WBC 5.2 (3.8-10.6) k/uL RBC 4.50 (3.80-5.40) m/uL Hgb 13.0 (11.4-16.0) gm/dL Hct 41.6 (34.0-46.0) % MCV 92.5 (80.0-100.0) fL MCH 28.9 (25.0-35.0) pg MCHC 31.2 (31.0-37.0) g/dL RDW 13.7 (11.5-15.5) % Plt Count 206 (150-450) k/uL MPV 8.3 Neutrophils % 53 % Lymphocytes % 35 % Monocytes % 5 % Eosinophils % 4 % Basophils % 1 % Neutrophils # 2.8 (1.3-7.7) k/uL Lymphocytes # 1.8 (1.0-4.8) k/uL Monocytes # 0.3 (0-1.0) k/uL Eosinophils # 0.2 (0-0.7) k/uL Basophils # 0.0 (0-0.2) k/uL PT 9.7 (9.0-12.0) sec INR 0.9 (<1.2) Sodium 138 (137-145) mmol/L Potassium 4.0 (3.5-5.1) mmol/L Chloride 107 (98-107) mmol/L Carbon Dioxide 23 (22-30) mmol/L Anion Gap 8 mmol/L BUN 17 (7-17) mg/dL Creatinine 0.58 (0.52-1.04) mg/dL Est GFR (CKD-EPI)AfAm >90 (>60 ml/min/1.73 sqM) Est GFR (CKD-EPI)NonAf >90 (>60 ml/min/1.73 sqM) Glucose 120 H (74-99) mg/dL Calcium 9.2 (8.4-10.2) mg/dL Total Bilirubin 0.5 (0.2-1.3) mg/dL AST 30 (14-36) U/L ALT 32 (4-34) U/L Alkaline Phosphatase 102 (38-126) U/L Troponin I (0.000-0.034) ng/mL Total Protein 6.7 (6.3-8.2) g/dL Albumin 4.2 (3.5-5.0) g/dL Lipase 54 (23-300) U/L Urine Color Urine Appearance (Clear) Urine pH (5.0-8.0) Ur Specific [place] (1.001-1.035) Urine Protein (Negative) Urine Glucose (UA) (Negative) Urine Ketones (Negative) Urine Blood (Negative) Urine Nitrite (Negative) Urine Bilirubin (Negative) Urine Urobilinogen (<2.0) mg/dL Ur Leukocyte Esterase (Negative) 03/31/23 03/31/23 Range/Units 08:16 09:10 WBC (3.8-10.6) k/uL RBC (3.80-5.40) m/uL Hgb (11.4-16.0) gm/dL Hct (34.0-46.0) % MCV (80.0-100.0) fL MCH (25.0-35.0) pg MCHC (31.0-37.0) g/dL RDW (11.5-15.5) % Plt Count (150-450) k/uL MPV Neutrophils % % Lymphocytes % % Monocytes % % Eosinophils % % Basophils % % Neutrophils # (1.3-7.7) k/uL Lymphocytes # (1.0-4.8) k/uL Monocytes # (0-1.0) k/uL Eosinophils # (0-0.7) k/uL Basophils # (0-0.2) k/uL PT (9.0-12.0) sec INR (<1.2) Sodium (137-145) mmol/L Potassium (3.5-5.1) mmol/L Chloride (98-107) mmol/L Carbon Dioxide (22-30) mmol/L Anion Gap mmol/L BUN (7-17) mg/dL Creatinine (0.52-1.04) mg/dL Est GFR (CKD-EPI)AfAm (>60 ml/min/1.73 sqM) Est GFR (CKD-EPI)NonAf (>60 ml/min/1.73 sqM) Glucose (74-99) mg/dL Calcium (8.4-10.2) mg/dL Total Bilirubin (0.2-1.3) mg/dL AST (14-36) U/L ALT (4-34) U/L Alkaline Phosphatase (38-126) U/L Troponin I <0.012 (0.000-0.034) ng/mL Total Protein (6.3-8.2) g/dL Albumin (3.5-5.0) g/dL Lipase (23-300) U/L Urine Color Colorless Urine Appearance Clear (Clear) Urine pH 7.0 (5.0-8.0) Ur Specific [place] 1.005 (1.001-1.035) Urine Protein Negative (Negative) Urine Glucose (UA) Negative (Negative) Urine Ketones Negative (Negative) Urine Blood Negative (Negative) Urine Nitrite Negative (Negative) Urine Bilirubin Negative (Negative) Urine Urobilinogen <2.0 (<2.0) mg/dL Ur Leukocyte Esterase Negative (Negative) Disposition Clinical Impression: Vertigo, Chronic sinusitis, Nausea, Headache Disposition: HOME SELF-CARE Condition: Stable Instructions (If sedation given, give patient instructions): Dizziness (ED) Additional Instructions: Please take a Claritin daily. Continue your Flonase. Take the antibiotic to see if that helps your symptoms. Follow up with your primary care doctor in 2-4 days. May need ENT referral should your dizziness continue. Return for any new or worsening symptoms Prescriptions: Azithromycin [Zithromax Z Pack] 1 tab PO DIRECTED #6 tab Ondansetron Odt [Zofran Odt] 4 mg PO Q8HR PRN #15 tab PRN Reason: Nausea Is patient prescribed a controlled substance at d/c from ED?: No Referrals: Annamarie Garcia MD [Primary Care Provider] - 1-2 days Rohit Hair MD [STAFF PHYSICIAN] - 1-2 days Time of Disposition: 09:48
--- NOTE | 2023-03-31 09:08 | XR ---
EXAMINATION TYPE: XR chest 2V DATE OF EXAM: 03/31/2023 COMPARISON: 10/19/2019 TECHNIQUE: PA and lateral views submitted. HISTORY: Syncope FINDINGS: The lungs are clear and there is no pneumothorax, pleural effusion, or focal pneumonia. Heart size normal and no overt failure. A C joint arthropathy. IMPRESSION: 1. No acute process.
[2023-03-31 09:29] LABS: Appearance,Urine Clear (Clear); Bilirubin,Urine Negative (Negative); Blood,Urine Negative (Negative); Color,Urine Colorless; Glucose,Urine (UA) Negative (Negative); Ketones,Urine Negative (Negative); Leukocyte Esterase,Urine Negative (Negative); Nitrite,Urine Negative (Negative); Protein,Urine Negative (Negative); Specific Gravity,Urine 1.005 (1.001-1.035); Urobilinogen,Urine <2.0 mg/dL (<2.0)
[2023-03-31] MEDS ORDERED: KETOROLAC 15 MG/ML 1 ML VIAL IVP STA (09:45)
[2023-03-31 09:58] VITALS: BP 135/92; PULSE 64; RESP 16
== END 2023-03-31 10:02 | disposition home or self-care (01) ==
LOC: EC 07:56
DX: R42 Dizziness and giddiness (principal); J32.9 Chronic sinusitis, unspecified; R11.0 Nausea; R51.9 Headache, unspecified; F32.A Depression, unspecified; F41.9 Anxiety disorder, unspecified; Z79.899 Other long term (current) drug therapy; Z86.16 Personal history of COVID-19; Z88.8 Allergy status to other drugs, medicaments and biological substances
CPT/HCPCS: 36415; 93005; 80053; 83690; 84484; 85025; 85610; 81003; 71046; 70450; 99285; 96374; 96361; J1885

== ENCOUNTER → 2023-07-13 | Outpatient (CLI) | payer BC ==
--- NOTE | 2023-07-17 01:38 | MM ---
Reason for Exam: Screening (asymptomatic). Last mammogram was performed 2 year(s) and 1 month(s) ago. Patient History: Menarche at age 11. First Full-Term at age 20. Hysterectomy at age 52. Patient used Hormonal Contraceptives for 1 year. 2009, Benign Excisional Biopsy on the right side. 2007, Benign Cyst Aspiration on the right side. Paternal cousin had breast cancer. Risk Values: Shavonne 5 year model risk: 0.9%. NCI Lifetime model risk: 8.3%. Prior Study Comparison: 06/30/2020 Right Diagnostic Mammogram, [facility]. 06/23/2021 Bilateral Screening Mammogram, [facility]. 07/06/2021 Right Diagnostic Mammogram, [facility]. Tissue Density: The breast tissue is heterogeneously dense. This may lower the sensitivity of mammography. Findings: Analyzed By CAD. Possible area of distortion left cc view does not persist on 3-D images. Findings compatible with superimposition shadow. There is no suspicious group of microcalcifications or new suspicious mass in either breast. Overall Assessment: Benign, BI-RAD 2 Management: Screening Mammogram of both breasts in 1 year. . Patient should continue monthly self-breast exams. A clinical breast exam by your physician is recommended on an annual basis. This exam should not preclude additional follow-up of suspicious palpable abnormalities. Note on Shavonne scores and lifetime risk: 1. A Shavonne score greater than 3% is considered moderate risk. If this is the case, consider specialist referral to assess eligibility for a risk reducing agent. 2. If overall lifetime risk for the development of breast cancer is 20% or higher, the patient may qualify for future screening with alternating mammogram and breast MRI. Electronically signed and approved by: Leonardo Paris M.D. Radiologist
== END | disposition home or self-care (01) ==
LOC: RADMAMWWP 13:33
PROVIDERS: ATTEND Family Medicine
DX: Z12.31 Encounter for screening mammogram for malignant neoplasm of breast (principal); Z80.3 Family history of malignant neoplasm of breast
CPT/HCPCS: 77063; 77067

== ENCOUNTER → 2023-10-23 | Outpatient (CLI) | payer BC ==
--- NOTE | 2023-10-23 16:58 | US ---
EXAMINATION TYPE: US pelvis complete transvag DATE OF EXAM: 10/23/2023 COMPARISON: NONE CLINICAL INDICATION: Female, 53 years old with history of R10.9 UNSPECIFIED ABDOMINAL PAIN; for 1 wee k she has has LLQ pain that radiates to her rectum, abnormal bowel habits recently, hysterectomy 1 ye ar ago TECHNIQUE: TA/TV. Transabdominal sonographic images of the pelvis were acquired. Transvaginal sono graphic images were medically necessary to better assess the following anatomy: ovaries Date of LMP: hysterectomy EXAM MEASUREMENTS: Uterus: Surgically absent Endometrial Stripe: Surgically absent Right Ovary: not seen Left Ovary: not seen 1. Uterus: Surgically absent 2. Endometrium: Surgically absent 3. Right Ovary: not seen 4. Left Ovary: not seen 5. Bilateral Adnexa: wnl 6. Posterior cul-de-sac: wnl IMPRESSION: Postoperative pelvis. Otherwise unremarkable study. Nonvisualization of the ovaries.
== END | disposition home or self-care (01) ==
LOC: RADUSWWP 16:06
PROVIDERS: ATTEND Family Medicine
DX: Z04.9 Encounter for examination and observation for unspecified reason (principal); R10.9 Unspecified abdominal pain
CPT/HCPCS: 76830; 76856

== ENCOUNTER → 2024-02-29 | Outpatient (CLI) | payer BC ==
[2024-02-29 19:51] LABS: Basophils # (A) 0.05 X 10*3/uL (0.00-0.10); Basophils % (A) 0.8 %; Eosinophils # (A) 0.13 X 10*3/uL (0.04-0.35); HCT 38.7 % (37.2-46.3); HGB 12.9 g/dL (12.0-15.0); Lymphocytes # (A) 1.91 X 10*3/uL (0.90-5.00); Lymphocytes % (A) 29.7 %; MCH 29.5 pg (27.0-32.0); MCHC 33.3 g/dL (32.0-37.0); MCV 88.6 FL (80.0-97.0); Mean Platelet Volume 11.3 FL (9.5-12.2); Monocytes # (A) 0.44 X 10*3/uL (0.20-1.00); Monocytes % (A) 6.8 %; NRBC Per 100 WBC 0 X 10*3/uL (0.00-0.01); Neutrophils # (A) 3.88 X 10*3/uL (1.80-7.70); Neutrophils % (A) 60.2 %; Platelet Count 251 X 10*3/uL (140-440); RBC 4.37 X 10*6/uL (4.10-5.20); RDW 13.6 % (11.5-14.5); WBC 6.44 X 10*3/uL (4.50-10.00)
[2024-02-29 21:52] LABS: BUN/Creat Ratio 22.67 Ratio (12.00-20.00); Blood Urea Nitrogen 13.6 mg/dL (9.0-27.0); Calcium 9.4 mg/dL (8.7-10.3); Carbon Dioxide 22.3 mmol/L (21.6-31.8); Chloride 106 mmol/L (96-109); Glucose 96 mg/dL (70-110); Potassium 4.3 mmol/L (3.5-5.5); Sodium 142 mmol/L (135-145)
== END | disposition home or self-care (01) ==
LOC: LABPAT 14:15
PROVIDERS: ATTEND Orthopaedic Surgery Hand Surgery
DX: Z01.812 Encounter for preprocedural laboratory examination (principal); G56.01 Carpal tunnel syndrome, right upper limb
CPT/HCPCS: 80048; 85025

== ENCOUNTER 2024-03-13 08:48 | Day surgery (SDC) | payer BC ==
--- NOTE | 2024-03-11 09:38 | P.HPOR ---
History of Present Illness H&P Date: 03/11/24 Subjective: This is a 54 year old female that presents today for evaluation regarding a several year history of progressively worsening right hand paresthesias in the thumb, index, middle and ring fingers. The patient has tried bracing with no relief. They deny any inciting event. She recently underwent EMG and is here to discuss results. Physical Examination: RUE: AIN/PIN/Radial/Ulnar/Median motor intact. Radial/Ulnar/Median SILT. 2+/4 Ra dial/Ulnar pulses palpated. 5/5 APB, 5/5 FDI. Negative Finkelsteins, negative CMC grind, positive Durkan's compression. EMG/NCV: EMG/NCV performed on 02/13/24 demonstrates moderate right carpal tunnel syndrome. Impression: 1.) Right carpal tunnel syndrome Plan: Diagnosis and treatment options were discussed with the patient. The patient has failed conservative treatment and would like to pursue a right endoscopic vs open carpal tunnel release. Risks and benefits of surgery including bleeding, infection, damage to surrounding tissue, need for further surgery, possible need to convert to open procedure, residual numbness were discussed and the patient wished to go forward with surgery. I anticipate 1 week off work, this can be extended if needed at first post op appointment. -Jose Mclain DO Orthopedic Hand/Upper Extremity Surgeon Past Medical History Past Medical History: GERD/Reflux, Osteoarthritis (OA) Additional Past Medical History / Comment(s): hx covid x3., allergies, hx vertigo, carpal tunnel History of Any Multi-Drug Resistant Organisms: None Reported Past Surgical History: Adenoidectomy, Hysterectomy, Tonsillectomy, Tubal Ligation Additional Past Surgical History / Comment(s): tumor removed out of right breast. Past Anesthesia/Blood Transfusion Reactions: Previous Problems w/ Anesthesia, Postoperative Nausea & Vomiting (PONV) Additional Past Anesthesia/Blood Transfusion Reaction / Comment(s): states difficulty waking up. Smoking Status: Never smoker - Past Family History Mother Family Medical History: COPD, Deep Vein Thrombosis (DVT), Pulmonary Embolus Father Family Medical History: Cancer Brother(s) Family Medical History: Pulmonary Embolus Sister(s) Family Medical History: Cancer Additional Family Medical History / Comment(s): brain cancer Medications and Allergies Home Medications Medication Instructions Recorded Confirmed Type Sertraline [Zoloft] 50 mg PO DAILY 08/17/22 03/08/24 History Acetaminophen Tab [Tylenol] 1,000 mg PO Q6H PRN #30 tab 08/24/22 03/08/24 Rx Ibuprofen 800 mg PO Q8H PRN #20 tab 08/24/22 03/08/24 Rx Otc Allergy 1 tab PO DAILY PRN 03/08/24 03/08/24 History Unk Meclizine 1 tab PO DIRECTED PRN 03/08/24 03/08/24 History Allergies Allergy/AdvReac Type Severity Reaction Status Date / Time prochlorperazine Allergy Dyspnea Verified 03/08/24 15:58 [From Compazine] Physical Examination Osteopathic Statement: *. No significant issues noted on an osteopathic structural exam other than those noted in the History and Physical/Consult.
[~2024-03-13 08:48] MED LIST: Pre Op ABX Message 1 EACH MISC MISCELLANE ONE
[2024-03-13] MEDS ORDERED: LIDOCAINE 1% (10MG/ML) FOR IV START INTRADERMA PRN (09:10)
[2024-03-13] MEDS ORDERED: MIDAZOLAM 2 MG/2 ML VIAL IV PRN (09:10)
[2024-03-13] MEDS ORDERED: HYDROmorphone 0.5 MG/0.5 ML SYRINGE IVP PRN (09:10)
[2024-03-13] MEDS ORDERED: fentaNYL (PF) 50 MCG/ML 2 ML AMP IVP PRN (09:10)
[2024-03-13 09:22] VITALS: TEMP 97.7
[2024-03-13] MEDS: BUPIVACAINE (PF) 0.5% 30 ML VIAL SQ ONE ×2 (09:33→09:51)
[2024-03-13] MEDS: LIDOCAINE 2% INJ 20 MG/ML SQ ONE ×2 (09:33→09:51)
[2024-03-13] MEDS: LACTATED RINGERS 1,000 ML IV SCH (09:37)
[2024-03-13] MEDS: ONDANSETRON 4 MG/2 ML VIAL IVP ONE (09:37)
[2024-03-13] MEDS: DEXAMETHASONE SOD PHOSPHATE 4 MG/ML 1 ML VIAL IV ONE (09:38)
[2024-03-13] MEDS: LACTATED RINGERS 1,000 ML IV ONE (09:43)
[2024-03-13] MEDS ORDERED: LIDOCAINE 1% INJ 10MG/ML (20 ML MDV) ONE (09:43)
[2024-03-13] MEDS ORDERED: MIDAZOLAM 2 MG/2 ML VIAL ONE (09:43)
[2024-03-13] MEDS ORDERED: PROPOFOL 10 MG/ML 20 ML VIAL IV ONE (09:43)
[2024-03-13] MEDS ORDERED: KETOROLAC 15 MG/ML 1 ML VIAL ONE (09:43)
[2024-03-13] MEDS ORDERED: fentaNYL (PF) 50 MCG/ML 2 ML AMP ONE (09:43)
[2024-03-13] MEDS: SCOPOLAMINE 1 MG/72 HR PATCH TRANSDERM STA (09:43)
[2024-03-13 10:08] VITALS: RESP 16
--- NOTE | 2024-03-13 10:15 | P.OP ---
Date of Procedure: 03/13/24 Preoperative Diagnosis: Right carpal tunnel syndrome Postoperative Diagnosis: Right carpal tunnel syndrome Procedure(s) Performed: Right endoscopic carpal tunnel release Anesthesia: MAC Surgeon: Jose Mclain Estimated Blood Loss (ml): 0 Pathology: none sent Condition: stable Disposition: PACU Description of Procedure: This is a 54 year old female who presents today for a right endoscopic carpal tunnel release after having failed conservative treatment in the past. Risks and benefits of surgery were discussed with the patient including bleeding, damage to surrounding tissue, infection, need to convert to open procedure, need for further surgery as well as risks of anesthesia including pulmonary embolism and even and the patient wished to proceed with surgical intervention. The patients was seen in the pre-operative area by myself. Consent and H&P were completed and updated. The correct extremity was marked in the pre-operative area by myself and all other questions were answered. Operative Narrative: The patient was brought to the operating room by the department of anesthesia. They remained on the portable stretcher and a rolling hand table was brought to the side of the operative extremity. Pre-operative time out was performed indicating the correct patient, procedure and laterality. All in the room agreed. The patient was then drifted off to sleep by the department of anesthesia. MAC anesthesia was utilized and a 50:50 mixture of 1% Lidocaine and 0.5% bupivacaine was injected into the subcutaneous tissues of the palmar skin, 8ccs total. A nonsterile tourniquet was then applied to the operative extremity and the right upper extremity was then prepped and draped in normal sterile fashion. The operative extremity was the exsanguinated with an esmarch bandage and the tourniquet was inflated to 250mmHg. 15 blade scalpel was utilized to make a transverse incision on the palmar skin just ulnar to the palmaris longus tendon at the level of the distal wrist crease. Ragnell retractor was then placed radially and blunt dissection was performed to reveal the distal forearm fascia. This was lifted with fine Jg pick ups and Littler tenotomy scissors were then used to open the forearm fascia transversely and a double skin hook was then placed. Hamate finder was placed into the carpal tunnel and then sequential sized dilators were inserted followed by the synovial elevator to separate the flexor tenosynovium from the undersurface of the transverse carpal ligament and a washboard texture was felt. The MicroAire endoscopic carpal tunnel release system gun was the then inserted into the carpal tunnel hugging the deep portion of the transverse carpal ligament in line with the base of the ring finger. Transverse fibers of the ligament were directly visualized. Pressure was applied on the palm to reveal t he distal extent of the transverse carpal ligament. The blade was then deployed and the distal half of the transverse carpal ligament was released. The scope was then brought distal again and remaining transverse fibers were incised with the blade. The proximal half of the transverse carpal ligament was then divided and again the scope was advanced distal and remaining transverse fibers were incised with the blade. The radial and ulnar leaflets were directly visualized and mobile consistent with complete release. Tenotomy scissors were then utilized to release the remaining distal forearm fascia under direct visualization taking care to preserve the palmar cutaneous branch of the median nerve. Skin closure was performed with interrupted 4-0 Monocryl suture followed by steri strips. Sterile dressing was applied consisting 4x4s, Webril, and an batool bandage. Tourniquet was let down and the hand immediately was well perfused. The patient was then woken by the department of anesthesia and transferred to PACU in stable condition. Erik LYNCH was present for the case in its entirety and assisted in major portions of the case and protection of vital neurovascular structures. Jose Mclain D.O. Orthopedic Hand/Upper Extremity Surgeon
[2024-03-13 10:32] VITALS: BP 132/76; PULSE 56
== END 2024-03-13 10:46 | disposition home or self-care (01) ==
LOC: OR 08:48
PROVIDERS: ATTEND Orthopaedic Surgery Hand Surgery
DX: G56.01 Carpal tunnel syndrome, right upper limb (principal); K21.9 Gastro-esophageal reflux disease without esophagitis; M19.90 Unspecified osteoarthritis, unspecified site; F41.9 Anxiety disorder, unspecified; F32.A Depression, unspecified; Z86.16 Personal history of COVID-19; Z88.8 Allergy status to other drugs, medicaments and biological substances; Z79.899 Other long term (current) drug therapy
CPT/HCPCS: 29848; J2001 ×2; J2250; J1100; J2405; J3010; J1885; J2704; J0665

== ENCOUNTER → 2024-08-13 | Outpatient (CLI) | payer BC ==
--- NOTE | 2024-08-14 12:47 | MM ---
Reason for Exam: Screening (asymptomatic). Last mammogram was performed 1 year(s) and 1 month(s) ago. Patient History: Menarche at age 11. First Full-Term at age 20. Hysterectomy at age 52. Patient used Hormonal Contraceptives for 1 year. 2009, Benign Excisional Biopsy on the right side. 2007, Benign Cyst Aspiration on the right side. Paternal cousin had breast cancer. Risk Values: Shavonne 5 year model risk: 1.0%. NCI Lifetime model risk: 8.1%. Prior Study Comparison: 06/23/2021 Bilateral Screening Mammogram, [facility]. 07/06/2021 Right Diagnostic Mammogram, [facility]. 07/13/2023 Bilateral MG 3D screening mammo w/cad, [facility]. Tissue Density: The breasts are heterogeneously dense, which may obscure small masses. Findings: Analyzed By CAD. Right breast: There is no suspicious group of microcalcifications or new suspicious mass. Left breast: There is no suspicious group of microcalcifications or new suspicious mass. Overall Assessment: Negative, BI-RAD 1 Management: Screening Mammogram of both breasts in [address] [facility] will attempt to contact patient to return for supplemental views and ultrasound if indicated. Patient should continue monthly self-breast exams. A clinical breast exam by your physician is recommended on an annual basis. This exam should not preclude additional follow-up of suspicious palpable abnormalities. Note on Shavonne scores and lifetime risk: 1. A Shavonne score greater than 3% is considered moderate risk. If this is the case, consider specialist referral to assess eligibility for a risk reducing agent. 2. If overall lifetime risk for the development of breast cancer is 20% or higher, the patient may qualify for future screening with alternating mammogram and breast MRI. [facility], , 08/14/2024 12:44 PM. Electronically signed and approved by: Zack Culp DO
== END | disposition home or self-care (01) ==
LOC: RADMAMWWP 09:07
PROVIDERS: ATTEND Family Medicine
DX: Z12.31 Encounter for screening mammogram for malignant neoplasm of breast (principal); Z80.3 Family history of malignant neoplasm of breast; R92.333 Mammographic heterogeneous density, bilateral breasts
CPT/HCPCS: 77063; 77067